=== PATIENT | male | born 1930 | race Caucasian/White ===

== ENCOUNTER 2018-07-14 16:17 | Inpatient (IN) | payer MEDICARE, OTHER ==
[2018-07-14 18:22] LABS: BASO # 0.1 K/uL (0.0-0.2); BASO % 0.5 % (0.0-2.0); EOS # 0.1 K/uL (0.0-0.7); EOS % 0.5 % (0.0-4.0); HEMOGLOBIN 11.8 g/dL (12.0-18.0); LYMPH # 0.7 K/uL (1.0-4.3); LYMPH % 6.3 % (20.0-40.0); MEAN CELL VOLUME 84.5 fl (80.0-94.0); MEAN CORPUSCULAR HEMOGLOBIN 28.8 pg (27.0-31.0); MEAN CORPUSCULAR HGB CONC 34.1 g/dL (33.0-37.0); MEAN PLATELET VOLUME 9.6 fl (7.2-11.7); MONO # 0.9 K/uL (0.0-0.8); MONO % 8.9 % (0.0-10.0); NEUT # 8.9 K/uL (1.8-7.0); NEUT % 83.8 % (50.0-75.0); NRBC % 0.1 % (0.0-0.0); PLATELET COUNT 117 K/uL (130-400); RBC 4.11 Mil/uL (4.40-5.90); RED CELL DISTRIBUTION WIDTH 16.2 % (11.5-14.5); WHITE BLOOD COUNT 10.6 K/uL (4.8-10.8)
--- NOTE | 2018-07-14 18:23 | ED PDOC ---
Lower Extremity Pain/Injury Time Seen by Provider: 07/14/18 17:12 Chief Complaint (Nursing): Lower Extremity Problem/Injury Chief Complaint (Provider): Lower Extremity Problem/Injury History Per: Patient, Family History/Exam Limitations: no limitations Onset/Duration Of Symptoms: Hrs (MOLD SWABBER) Additional Complaint(s): 87 years old male presents to ER with family for evaluation of a head injury, r ight ankle pain and right flank pain status post a mechanical fall today. Family reports he has been confused at baseline. Unclear if there was loss of consciousness. Patient is unable to answer all questions. PMD: Dr. Lassiter Past Medical History Reviewed: Historical Data, Nursing Documentation, Vital Signs Vital Signs: Last Vital Signs Temp 98.9 F 07/14/18 16:22 Pulse 92 H 07/14/18 16:22 Resp 18 07/14/18 16:22 BP 113/49 L 07/14/18 16:22 Pulse Ox 98 07/14/18 16:22 - Medical History PMH: Benign Prostatic Hyperplasia, HTN Denies: HIV, Chronic Kidney Disease - Surgical History Surgical History: Appendectomy, Cholecystectomy - Family History Family History: States: Unknown Family Hx - Social History Current smoker - smoking cessation education provided: No Alcohol: None Drugs: Denies - Home Medications Home Medications: Ambulatory Orders Medication Instructions Recorded RX: Carvedilol [Coreg] 1 tab PO BID 03/02/16 RX: Tamsulosin HCl [Flomax] 1 cap PO DAILY 03/02/16 RX: amLODIPine [Norvasc] 10 mg PO DAILY 03/02/16 RX: Fluticasone/Salmeterol 500/50 1 puff IH Q12 03/08/17 [Advair Diskus 500/50] RX: Montelukast Sodium [Singulair] 10 mg PO DAILY 03/08/17 - Allergies Allergies/Adverse Reactions: Allergies Allergy/AdvReac Type Severity Reaction Status Date / Time No Known Allergies Allergy Verified 02/18/16 12:27 Review of Systems ROS Statement: Except As Marked, All Systems Reviewed And Found Negative Musculoskeletal: Positive for: Foot Pain (Right ankle), Other (Right flank and head injury) Physical Exam - Reviewed Nursing Documentation Reviewed: Yes Vital Signs Reviewed: Yes - Physical Exam Appears: Positive for: Non-toxic, No Acute Distress Head Exam: Positive for: NORMOCEPHALIC. Negative for: ATRAUMATIC (patient has swelling and tenderness to right side parietal area) Skin: Positive for: Normal Color, Warm, Dry Eye Exam: Positive for: Normal appearance, EOMI, PERRL Neck: Positive for: Normal, Painless ROM, Supple Cardiovascular/Chest: Positive for: Regular Rate, Rhythm. Negative for: Murmur Respiratory: Positive for: Normal Breath Sounds. Negative for: Wheezing Gastrointestinal/Abdominal: Positive for: Normal Exam, Soft. Negative for: Tenderness Back: Positive for: Other (Ecchymosis to right lower flank) Extremity: Positive for: Normal ROM, Tenderness (of right ankle), Swelling (of right ankle). Negative for: Deformity (of right ankle) Neurologic/Psych: Positive for: Alert. Negative for: Oriented - Laboratory Results Result Diagrams: 07/14/18 18:05 07/14/18 18:05 - ECG O2 Sat by Pulse Oximetry: 98 (RA) Pulse Ox Interpretation: Normal Medical Decision Making Medical Decision Making: Time: 1751 Initial Impression: mechanical fall including head injury and right ankle pain. Initial Plan: --Type and screen --Abdomen/Pelvis CT --Head W/O Contrast CT --BMP --CPK --Troponin --CBC --PTT --PT --Chest x-ray --Right ankle x-ray [address] Hale, pending CT and reevaluation. Scribe Attestation: Documented by Bridgette Novoa, acting as a scribe for Bayron Schultz MD. Provider Scribe Attestation: All medical record entries made by the Scribe were at my direction and personally dictated by me. I have reviewed the chart and agree that the record accurately reflects my personal performance of the history, physical exam, medical decision making, and the department course for this patient. I have also personally directed, reviewed, and agree with the discharge instructions and disposition. Disposition - Clinical Impression Clinical Impression: Syncope - Patient ED Disposition Is Patient to be Admitted: Transfer of Care Counseled Patient/Family Regarding: Studies Performed, Diagnosis - Disposition Disposition: Transfer of Care Disposition Time: 19:00 Condition: STABLE Patient Signed Over To: Zeke Hale
[2018-07-14 18:27] LABS: BLOOD UREA NITROGEN 27 mg/dl (9-20); CALCIUM 8.2 mg/dL (8.4-10.2); GFR NON-AFRICAN AMERICAN > 60
[2018-07-14 18:29] LABS: INR 1.3; PROTHROMBIN TIME 14.8 Seconds (9.8-13.1)
[2018-07-14] MEDS ORDERED: Sodium Chloride 0.9% 50 ML IV ONE (19:12)
[2018-07-14] MEDS ORDERED: Iohexol 300 100 ML IJ ONE (19:12)
--- NOTE | 2018-07-14 19:41 | ED PDOC ---
- Laboratory Results Result Diagrams: 07/14/18 18:05 07/14/18 18:05 - ECG O2 Sat by Pulse Oximetry: 98 (RA) Pulse Ox Interpretation: Normal Medical Decision Making Medical Decision Makin Patient endorsed by Dr. Schultz, pending CT and reevaluation. [address] FINDINGS: BRAIN No acute intraparenchymal hemorrhage. No mass lesion. No CT evidence for acute territorial infarct. No midline shift or extra-axial collections. VENTRICLES: No hydrocephalus. ORBITS: The orbits are unremarkable. SINUSES AND MASTOIDS: Mucous membrane thickening ethmoid sinus is suspected. BONES: No fracture. SOFT TISSUES: Unremarkable. IMPRESSION: No acute intracranial abnormality. Chronic changes of paranasal sinus is suspected. [address] FINDINGS: ALIGNMENT There is a mild anterolisthesis at the C4-C5 and C5-C6 levels. DEGENERATIVE CHANGES There is diffuse advanced hypertrophic and degenerative change with disc space narrowing and chronic disc disease throughout the cervical spine. Spinal canal appears preserved. Advanced osteoarthritic change present within the apophyseal joints. SOFT TISSUES The prevertebral soft tissues are within normal limits. BONES No acute fracture or aggressive appearing osseous lesion. IMPRESSION: Mild anterolisthesis at the C4-C5 and C5-C6 levels. Diffuse advanced hypertrophic and degenerative change with chronic disc disease multiple levels. Clinical correlation advised. 2002 CT Chest with IV Contrast FINDINGS: CHEST: LUNGS: No pulmonary mass. The lungs appear essentially clear. There is scarring both lungs. Elevation left hemidiaphragm. PLEURAL SPACES: No pneumothorax evident. No pleural effusions. HEART: No cardiomegaly. No significant pericardial effusion. Coronary artery calcification present. LYMPH NODES: No lymphadenopathy is evident. ABDOMEN AND PELVIS: LIVER: Unremarkable. No focal lesions. GALLBLADDER AND BILE DUCTS: The gallbladder has been surgically removed. PANCREAS: Unremarkable. SPLEEN: Splenomegaly with a spleen measuring approximate 14 cm. ADRENAL GLANDS: Right adrenal gland adenoma measuring 3.3 x 2.2 cm. KIDNEYS, URETERS, AND BLADDER: Unremarkable. No hydronephrosis or nephrolithiasis. No uterteral or bladder calculi. Prostate gland is markedly enlarged and lobulated in contour. STOMACH AND BOWEL: Unremarkable appearance of the stomach and bowel. No evidence of bowel obstruction. No evidence suggesting enteritis or colitis. APPENDIX: No evidence of acute appendicitis on CT examination. PERITONEUM: No free fluid. No free air. LYMPH NODES: No lymphadenopathy is evident. VASCULATURE: No evidence of abdominal aortic aneurysm. BONES: Diffuse advanced hypertrophic and degenerative changes thoracic and lumbar spine. Minimal retrolisthesis at the L2-L3 and L3-4 levels. IMPRESSION: Scarring both lungs. Atherosclerotic changes. Splenomegaly. Right adrenal gland adenoma measuring 3.3 x 2.2 cm. Markedly enlarged and lobulated prostate gland. Advanced diffuse hypertrophic and degenerative changes thoracic and lumbar spine.. Clinical correlation advised. [address] Lassiter, who recommends appropriate observation for syncope. Scribe Attestation: Documented by Bridgette Novoa, acting as a scribe for Zeke Hale MD. Provider Scribe Attestation: All medical record entries made by the Scribe were at my direction and personally dictated by me. I have reviewed the chart and agree that the record accurately reflects my personal performance of the history, physical exam, medical decision making, and the department course for this patient. I have also personally directed, reviewed, and agree with the discharge instructions and disposition. Disposition Discussed With : Darius Pollock - Clinical Impression Clinical Impression: Syncope - POA Present On Arrival: Falls Or Trauma - Disposition Disposition: Hospitalized as Observation Patient Disposition Time: 21:00 Condition: FAIR
[2018-07-14 20:58] LABS: EOSINOPHIL 1 % (0-7); LYMPHOCYTE 8 % (20-50); MONOCYTE 7 % (0-10); NEUTROPHIL 84 % (42-75); TOTAL CELLS COUNTED 100
[2018-07-14 20:59] LABS: PLATELET ESTIMATE SLIGHTLY DECREASED (NORMAL)
[2018-07-14 21:00] LABS: ANISOCYTOSIS SLIGHT; OVALOCYTES SLIGHT
[2018-07-14 21:39] LABS: TROPONIN I 0.024 ng/mL (0.00-0.120)
[2018-07-14 21:44] LABS: CALCIUM 8.2 mg/dL (8.4-10.2)
--- NOTE | 2018-07-14 21:47 | CP.PCM.HP ---
History of Present Illness - History of Present Illness History of Present Illness: 87 years old male presents to ER with family for evaluation of multiple contusions: a head injury, right ankle pain and right flank pain status post a mechanical fall today. Family reports he has been confused at baseline. Unclear if there was loss of consciousness. Patient describes a possible syncopal episode. With dizziness and vertigo. At timers appears confuse. Present on Admission - Present on Admission Any Indicators Present on Admission: Yes Decubitus Ulcer Stage: II Past Patient History - Infectious Disease Hx of Infectious Diseases: None - Past Medical History & Family History Past Medical History?: Yes - Past Social History Alcohol: None Drugs: Denies - CARDIAC Hx Hypertension: Yes - PULMONARY Hx Respiratory Disorders: No - NEUROLOGICAL Hx Neurological Disorder: No - HEENT Hx HEENT Problems: No - RENAL Hx Chronic Kidney Disease: No - ENDOCRINE/METABOLIC Hx Endocrine Disorders: No - HEMATOLOGICAL/ONCOLOGICAL Hx Human Immunodeficiency Virus (HIV): No - INTEGUMENTARY Hx Dermatological Problems: No - MUSCULOSKELETAL/RHEUMATOLOGICAL Hx Musculoskeletal Disorders: Yes (Fall 2 wks ago) Hx Falls: Yes - GASTROINTESTINAL Hx Gastrointestinal Disorders: No - GENITOURINARY/GYNECOLOGICAL Hx Genitourinary Disorders: Yes (BPH) Hx Prostate Problems: Yes - PSYCHIATRIC Hx Psychophysiologic Disorder: No Hx Substance Use: No - SURGICAL HISTORY Hx Appendectomy: Yes Hx Cholecystectomy: Yes - ANESTHESIA Hx Anesthesia: Yes Hx Anesthesia Reactions: No Meds Allergies/Adverse Reactions: Allergies Allergy/AdvReac Type Severity Reaction Status Date / Time No Known Allergies Allergy Verified 02/18/16 12:27 Physical Exam - Constitutional Appears: Confused, Chronically Ill - Head Exam Head Exam: NORMOCEPHALIC - Eye Exam Eye Exam: Normal appearance Pupil Exam: NORMAL ACCOMODATION - ENT Exam ENT Exam: Mucous Membranes Dry - Neck Exam Neck exam: Positive for: Full Rom - Respiratory Exam Respiratory Exam: Clear to Auscultation Bilateral - Cardiovascular Exam Cardiovascular Exam: REGULAR RHYTHM, +S1, +S2 - GI/Abdominal Exam GI & Abdominal Exam: Normal Bowel Sounds - Extremities Exam Additional comments: severe onychomycosis - Neurological Exam Neurological exam: Altered - Psychiatric Exam Psychiatric exam: Flat Affect - Skin Skin Exam: Abrasion Additional comments: large ecchymosis in the rt flank with an ulceration stage II about 2 cm, stage II decubitus ulcer in the sacral area and stage I in the back Results - Vital Signs Recent Vital Signs: Last Vital Signs Temp 98.9 F 07/14/18 16:22 Pulse 88 07/14/18 20:57 Resp 18 07/14/18 20:57 BP 103/51 L 07/14/18 20:57 Pulse Ox 98 07/14/18 21:02 - Labs Result Diagrams: 07/14/18 18:05 07/14/18 18:05 Labs: Laboratory Results - last 24 hr 07/14/18 07/14/18 07/14/18 18:05 18:05 18:05 WBC 10.6 RBC 4.11 L Hgb 11.8 L Hct 34.8 L MCV 84.5 MCH 28.8 MCHC 34.1 RDW 16.2 H Plt Count 117 L MPV 9.6 Neut % (Auto) 83.8 H Lymph % (Auto) 6.3 L [place] % (Auto) 8.9 Eos % (Auto) 0.5 Baso % (Auto) 0.5 Neut # (Auto) 8.9 H Lymph # (Auto) 0.7 L [place] # (Auto) 0.9 H Eos # (Auto) 0.1 Baso # (Auto) 0.1 Neutrophils % (Manual) 84 H Lymphocytes % (Manual) 8 L Monocytes % (Manual) 7 Eosinophils % (Manual) 1 Platelet Estimate Slightly decreased L Anisocytosis (manual) Slight Ovalocytes Slight PT INR APTT Sodium 136 Potassium 4.2 Chloride 110 H Carbon Dioxide 20 L Anion Gap 10 BUN 27 H Creatinine 0.8 Est GFR ( Amer) > 60 Est GFR (Non-Af Amer) > 60 Random Glucose 140 H Calcium 8.2 L Magnesium Total Creatine Kinase 29 L Troponin I 0.0220 Blood Type A POSITIVE Antibody Screen Negative BBK History Checked Patient has bt 07/14/18 07/14/18 18:05 21:11 WBC RBC Hgb Hct MCV MCH MCHC RDW Plt Count MPV Neut % (Auto) Lymph % (Auto) [place] % (Auto) Eos % (Auto) Baso % (Auto) Neut # (Auto) Lymph # (Auto) [place] # (Auto) Eos # (Auto) Baso # (Auto) Neutrophils % (Manual) Lymphocytes % (Manual) Monocytes % (Manual) Eosinophils % (Manual) Platelet Estimate Anisocytosis (manual) Ovalocytes PT 14.8 H INR 1.3 APTT 39.0 H Sodium Potassium Chloride Carbon Dioxide Anion Gap BUN Creatinine Est GFR ( Amer) Est GFR (Non-Af Amer) Random Glucose Calcium 8.2 L Magnesium 2.2 Total Creatine Kinase Troponin I 0.0240 Blood Type Antibody Screen BBK History Checked Assessment & Plan (1) Syncope Status: Acute (2) Dehydration Status: Acute (3) Ecchymosis Status: Acute (4) Decubitus skin ulcer Status: Acute (5) Delirium Status: Acute
[2018-07-14] MEDS: Sodium Chloride 0.9% 1,000 ML IV SCH (22:04)
[2018-07-14 22:31] LABS: ALB/GLOB RATIO 0.9 (1.0-2.1); ALBUMIN 2.8 g/dL (3.5-5.0); BILIRUBIN,DIRECT 0.1 mg/ml (0.0-0.4)
[2018-07-14 23:56] LABS: SQUAMOUS EPITHIAL 1 /hpf (0-5); URINE BILIRUBIN NEGATIVE (NEGATIVE); URINE BLOOD NEGATIVE (NEGATIVE); URINE CLARITY CLEAR (Clear); URINE COLOR YELLOW (YELLOW); URINE GLUCOSE (UA) NEG (Normal); URINE LEUKOCYTE ESTERASE NEG Leu/uL (Negative); URINE PROTEIN NEGATIVE (NEGATIVE)
[2018-07-15 03:36] VITALS: BMI 23.6
[2018-07-15] MEDS ORDERED: Influenza Vaccine (5 YR UP)/PF 60 MCG/0.5 ML SYR IM ONE (08:00)
[2018-07-15] MEDS: Fluticasone-Salmeterol 500-50mcg Diskus IH SCH (08:49)
[2018-07-15] MEDS: Enoxaparin 40 mg Syringe SC SCH (08:50)
[2018-07-15] MEDS ORDERED: Pneumococcal 23-Valent Vaccine IM ONE (09:00)
[2018-07-15 09:15] LABS: SQUAMOUS EPITHIAL < 1 /hpf (0-5); URINE BILIRUBIN NEGATIVE (NEGATIVE); URINE BLOOD MODERATE (NEGATIVE); URINE CLARITY SLIGHTY-CLOUDY (Clear); URINE COLOR YELLOW (YELLOW); URINE GLUCOSE (UA) NEG (Normal); URINE LEUKOCYTE ESTERASE TRACE Leu/uL (Negative); URINE PROTEIN NEGATIVE (NEGATIVE)
--- NOTE | 2018-07-15 09:25 | CT ---
Date of service: 07/14/2018 PROCEDURE: CT HEAD WITHOUT CONTRAST. HISTORY: head injury COMPARISON: None available. TECHNIQUE: Axial computed tomography images were obtained through the head/brain without intravenous contrast. Radiation dose: Total exam DLP = 831.14 mGy-cm. This CT exam was performed using one or more of the following dose reduction techniques: Automated exposure control, adjustment of the mA and/or kV according to patient size, and/or use of iterative reconstruction technique. FINDINGS: HEMORRHAGE: No intracranial hemorrhage. BRAIN: No mass effect or edema. Mild diffuse age-appropriate cerebral atrophy. Moderate periventricular and patchy and confluent deep/subcortical white matter lucency consistent with microvascular white matter ischemic change. No evidence of acute infarct. VENTRICLES: Unremarkable. No hydrocephalus. CALVARIUM: Unremarkable. PARANASAL SINUSES: Minimal chronic left frontal and bilateral maxillary sinusitis. MASTOID AIR CELLS: Unremarkable as visualized. No inflammatory changes. OTHER FINDINGS: None. IMPRESSION: No intracranial mass, hemorrhage or evidence of acute infarct. Chronic microvascular ischemic change. Minimal chronic paranasal sinusitis. The preliminary findings for this examination were reported by [facility] at 7:34 p.m. on 07/14/2018. There is concurrence of this report with the preliminary findings.
--- NOTE | 2018-07-15 09:37 | CT ---
Date of service: 07/14/2018 PROCEDURE: CT Cervical Spine without contrast HISTORY: head injury COMPARISON: None available. TECHNIQUE: Axial computed tomography images were obtained of the cervical spine without the use of intravenous contrast. Coronal and sagittal reformatted images were created and reviewed. Radiation dose: Total exam DLP = 348.81 mGy-cm. This CT exam was performed using one or more of the following dose reduction techniques: Automated exposure control, adjustment of the mA and/or kV according to patient size, and/or use of iterative reconstruction technique. FINDINGS: VERTEBRAE: The vertebral bodies are maintained in height. There is grade 1 retrolisthesis at C3-4. There is grade 1 anterolisthesis at C5-6. This is felt to be degenerative in origin. Normal alignment is maintained elsewhere. The atlantoaxial articulation and odontoid process are intact. Incidentally noted is an irregularly shaped sclerotic focus with sharp zone of transition most likely representing a benign bone island or enostosis. DISCS/SPINAL CANAL/NEURAL FORAMINA: There is narrowing of the C3-4 through 7-1 intervertebral disc spaces consistent with multilevel degenerative disc disease. This is most pronounced at C3-4. There is bilateral neural foraminal stenosis at C3-4, left greater than right. There is mild central spinal stenosis noted at C3-4. There is no significant central spinal stenosis seen elsewhere throughout the cervical spine. There is mild disc bulge at C3-4. There is no focal herniation identified. PARASPINAL SOFT TISSUES: Unremarkable. OTHER FINDINGS: There is linear scar as well as mild pleural thickening in the right lung apex, likely postinflammatory but cannot rule out malignancy. Follow-up advised. IMPRESSION: No evidence of fracture or dislocation. There are mild this the sees as noted, degenerative in origin. Multilevel degenerative disc disease. Bilateral neural foraminal stenosis at C3-4 with central spinal stenosis at C3-4 and disc bulge. Linear scar and pleural thickening in right apex, likely postinflammatory. See above. The preliminary findings for this examination were reported by [facility] at 7:38 p.m. on 07/14/2018. There is concurrence of this report with the preliminary findings.
[2018-07-15] MEDS: Sodium Chloride 0.9% 1,000 ML IV SCH (10:19)
--- NOTE | 2018-07-15 11:14 | CARD ---
APPROVED REPORT Date of service: 07/14/2018 EKG Measurement Heart [id number] <Conclusion> Sinus rhythm with 1st degree AV block Left axis deviation Moderate voltage criteria for LVH, may be normal variant Abnormal ECG
--- NOTE | 2018-07-15 11:31 | US ---
Date of service: 07/14/2018 PROCEDURE: Duplex ultrasound of the carotid and vertebral arteries. HISTORY: syncope COMPARISON: None available. TECHNIQUE: Grayscale and duplex Doppler evaluation of the cervical carotid and vertebral arteries were performed. The common carotid, carotid bifurcations and cervical ICA and proximal ECA were evaluated. The vertebral arteries were evaluated for gross patency and direction. FINDINGS: RIGHT CAROTID ARTERIES: Common Carotid Artery: Maximal flow velocity of 64.7 cm/s. Carotid Bifurcation: Intimal thickening is present Internal Carotid Artery:Heterogeneous plaque formation. Maximal flow velocity of 63.0 cm/s. External Carotid Artery (proximal branches): Maximal flow velocity of 127.6 cm/s. ICA/CCA Ratio: 1.0 LEFT CAROTID ARTERIES: Common Carotid Artery: Maximal flow velocity of 72.4 cm/s. Carotid Bifurcation: Intimal thickening is present Internal Carotid Artery:Heterogeneous plaque formation. Maximal flow velocity of 64.7 cm/s. External Carotid Artery (proximal branches): Maximal flow velocity of 90.5 cm/s. ICA/CCA Ratio: 0.9 VERTEBRAL ARTERIES: Right Vertebral Artery: Patent. Antegrade flow. Left Vertebral Artery: Patent. Antegrade flow. OTHER FINDINGS: Atherosclerotic calcification present. IMPRESSION: Right ICA degree of stenosis: Less than 50% Left ICA degree of stenosis: Less than 50% Reference Internal Carotid Artery (ICA) Peak Systolic Velocity (PSV) for above: 1. Less than 50% stenosis less than 125 cm/s peak systolic velocity 2. 50-69% stenosis 125-230cm/s peak systolic velocity 3. Greater than 70% but less than near occlusion greater than 230 cm/s peak systolic velocity
--- NOTE | 2018-07-15 11:48 | RAD ---
Date of service: 07/14/2018 HISTORY: fall COMPARISON: 03/03/2016 FINDINGS: LUNGS: Patchy multifocal infiltrates. PLEURA: No significant pleural effusion identified, no pneumothorax apparent. CARDIOVASCULAR: Atherosclerotic calcifications identified primarily aortic arch. OSSEOUS STRUCTURES: Posterior lateral left 7th rib fracture. VISUALIZED UPPER ABDOMEN: Normal. OTHER FINDINGS: None. IMPRESSION: Posterior-lateral left 7th rib fracture. No visible pneumothorax. Patchy multifocal infiltrates bilaterally.
--- NOTE | 2018-07-15 11:49 | RAD ---
Date of service: 07/14/2018 PROCEDURE: Right Ankle Radiographs. HISTORY: righth ankle pain injury COMPARISON: None available. FINDINGS: BONES: Normal. No fracture. JOINTS: Normal. No osteoarthritis. Ankle mortise maintained. Talar dome intact SOFT TISSUES: Normal. OTHER FINDINGS: None. IMPRESSION: No visible fracture/pathologic process.
--- NOTE | 2018-07-15 12:36 | CP.PCM.PN ---
Subjective - Date & Time of Evaluation Date of Evaluation: 07/15/18 Time of Evaluation: 12:37 - Subjective Subjective: Still confuse BUN elevated, Multifocal infiltrate in CXR, positive leukocytes in urine Patient with mental status changes with uti and pneumonia CURB #. Will change to regular admission and start antibx rx. Objective - Vital Signs/Intake and Output Vital Signs (last 24 hours): Temp Pulse Resp BP Pulse Ox 98.5 F 89 24 135/59 L 95 07/15/18 12:01 07/15/18 12:01 07/15/18 12:01 07/15/18 12:01 07/15/18 12:01 Intake and Output: 07/15/18 07/15/18 11:59 23:59 Intake Total 680 Output Total 400 Balance 280 - Medications Medications: Current Medications Amlodipine Besylate (Norvasc) 10 mg PO DAILY [facility] Last Admin: 07/15/18 08:51 Dose: 10 mg Carvedilol (Coreg) 3.125 mg PO BID [facility] Last Admin: 07/15/18 08:50 Dose: 3.125 mg Enoxaparin Sodium (Lovenox) 40 mg SC DAILY [facility]; Protocol Last Admin: 07/15/18 08:50 Dose: 40 mg Sodium Chloride (Sodium Chloride 0.9%) 1,000 mls @ 85 mls/hr IV .[id number] [facility] Stop: 07/15/18 21:56 Last Admin: 07/15/18 10:19 Dose: 85 mls/hr Montelukast Sodium (Singulair) 10 mg PO DAILY [facility] Last Admin: 07/15/18 08:51 Dose: 10 mg Fluticasone/Salmeterol (Advair Diskus 500/50) 1 puff IH Q12 [facility] Last Admin: 07/15/18 08:49 Dose: 1 puff Tamsulosin HCl (Flomax) 0.4 mg PO DAILY [facility] Last Admin: 07/15/18 08:51 Dose: 0.4 mg - Labs Labs: 07/14/18 18:05 07/14/18 18:05 PT 14.8 Seconds (9.8-13.1) H 07/14/18 18:05 INR 1.3 07/14/18 18:05 APTT 39.0 Seconds (25.6-37.1) H 07/14/18 18:05 - Constitutional Appears: Confused, Chronically Ill - Head Exam Head Exam: NORMOCEPHALIC - Eye Exam Pupil Exam: NORMAL ACCOMODATION - ENT Exam ENT Exam: Mucous Membranes Dry - Neck Exam Neck Exam: Full ROM - Respiratory Exam Respiratory Exam: Decreased Breath Sounds - Cardiovascular Exam Cardiovascular Exam: REGULAR RHYTHM, +S1, +S2 - GI/Abdominal Exam GI & Abdominal Exam: Normal Bowel Sounds - Extremities Exam Extremities Exam: Normal Inspection - Neurological Exam Neurological Exam: Altered - Psychiatric Exam Psychiatric exam: Flat Affect - Skin Skin Exam: Pallor Assessment and Plan (1) Syncope Status: Acute (2) Dehydration Status: Acute (3) Ecchymosis Status: Acute (4) Decubitus skin ulcer Status: Acute (5) Delirium Status: Acute (6) UTI (urinary tract infection) Status: Acute (7) Pneumonia Status: Acute
[2018-07-15 13:04] LABS: FOLATE 16.3 ng/mL
--- NOTE | 2018-07-15 13:45 | CT ---
Date of service: 07/14/2018 PROCEDURE: CT Chest, Abdomen and Pelvis with intravenous contrast HISTORY: fall abdominal injury COMPARISON: None available. TECHNIQUE: IV dose administered: 90 cc Omnipaque 300. Radiation dose: Total exam DLP = 1135.72 mGy-cm. This CT exam was performed using one or more of the following dose reduction techniques: Automated exposure control, adjustment of the mA and/or kV according to patient size, and/or use of iterative reconstruction technique. FINDINGS: CT CHEST WITH CONTRAST: LUNGS: Increased interstitial markings including thickening of interlobular septa consistent with pulmonary edema. MEDIASTINUM: Unremarkable. Normal caliber aorta and pulmonary arterial trunk. No aortic dissection. Normal size heart. LYMPH NODES: Unremarkable. PLEURA: Pleural calcifications likely the sequela of prior asbestos exposure. No pneumothorax. No pleural fluid. BONES: Nondisplaced fractures through the posterior lateral aspect of the right 6th and 7th ribs. No adjacent, underlying pleural or pulmonary abnormality. OTHER FINDINGS: None. CT ABDOMEN AND PELVIS: LIVER: Unremarkable. No gross lesion or ductal dilatation. GALLBLADDER AND BILE DUCTS: Status post cholecystectomy. No abnormality is seen in the gallbladder fossa. PANCREAS: Unremarkable. No gross lesion or ductal dilatation. SPLEEN: Unremarkable. ADRENALS: Enlarged right adrenal gland unchanged compared to the prior CT 03/03/2016. Well-circumscribed mass measuring 2.3 x 3.3 cm. Left adrenal gland: No mass. KIDNEYS AND URETERS: Unremarkable. No hydronephrosis. No solid mass. VASCULATURE: Atherosclerotic calcification and mural plaque present. Findings are seen throughout the aorta No aortic aneurysm. BOWEL: Unremarkable. No obstruction. No gross mural thickening. APPENDIX: Normal appendix. PERITONEUM: Unremarkable. No free fluid. No free air. LYMPH NODES: Unremarkable. No enlarged lymph nodes. BLADDER: Unremarkable. REPRODUCTIVE: Markedly enlarged prostate measuring 6.3 x 7.2 cm. Similar findings identified on the prior study. BONES: No acute fracture. OTHER FINDINGS: Large hematoma, soft tissue injury extending from the left flank inferiorly to the level of the abductors muscles. Increased attenuation of several foci higher than expected for hemorrhage. Other considerations include osseous origin. Whether this is a destructive process or soft tissue mass containing bony elements or atypical avulsion from the right iliac wing is difficult to determine. Elective follow-up recommended Postoperative findings right inguinal region improved compared to the prior study. IMPRESSION: 1. Posterolateral right 7th and 8th rib fractures. No underlying pleural or parenchymal abnormality. 2. Large soft tissue injury, hematoma primarily affecting the right flank and abduct ir musculature. Elective follow-up recommended for assessment of foci of calcifications within the soft tissue mass. 3. Stable enlargement of the right adrenal gland. Per institutional protocol, study has been placed in the PA review folder.
[2018-07-15] MEDS: Azithromycin 500 MG in Sodium Chloride 0.9% 250 ML IVPB SCH (15:57)
--- NOTE | 2018-07-15 23:53 | CARD ---
APPROVED REPORT Date of service: 07/15/2018 EXAM: Two-dimensional and M-mode echocardiogram with Doppler and color Doppler. Other Information Quality : PoorRhythm : NSR Technically limited study due to No Echo Window Mitral Valve E/A ratio0.0 TDI E/Lateral E'0.0E/Medial E'0.0 LEFT VENTRICLE The left ventricle is normal size. There is normal left ventricular wall thickness. The left ventricular function is normal. LVEF is 55-60%. There is normal LV segmental wall motion. Not completely assessed. RIGHT VENTRICLE Not well visualized. Not well visualized. ATRIA The left atrium size is normal. Not well visualized. AORTIC VALVE Not well visualized. No aortic regurgitation is present. Not well visualized. MITRAL VALVE Not well visualized. There is no mitral valve stenosis. There is no mitral valve regurgitation noted. TRICUSPID VALVE Not well visualized. Not well visualized. PULMONIC VALVE Not well visualized. Not well visualized. GREAT VESSELS Not well visualized. Not well visualized. PERICARDIAL EFFUSION The pericardium appears normal. <Conclusion> Technically difficult study with limited windows. Normal LV systolic function with EF 55-60% Diastolic function assessment was inconclusive. Likely normal mitral and aortic valves with no significant doppler flow abnormality.
[2018-07-16] MEDS: Sodium Chloride 0.9% 1,000 ML IV SCH (02:17)
[2018-07-16 05:42] LABS: BASO % 0.8 % (0.0-2.0); EOS % 0.6 % (0.0-4.0); HEMOGLOBIN 7.9 g/dL (12.0-18.0); LYMPH # 0.6 K/uL (1.0-4.3); LYMPH % 11.7 % (20.0-40.0); MEAN CELL VOLUME 84.7 fl (80.0-94.0); MEAN CORPUSCULAR HGB CONC 34.3 g/dL (33.0-37.0); MEAN PLATELET VOLUME 9.8 fl (7.2-11.7); MONO # 0.6 K/uL (0.0-0.8); MONO % 11.5 % (0.0-10.0); NEUT # 3.8 K/uL (1.8-7.0); NEUT % 75.4 % (50.0-75.0); NRBC % 0.1 % (0.0-0.0); RBC 2.71 Mil/uL (4.40-5.90); RED CELL DISTRIBUTION WIDTH 16.2 % (11.5-14.5)
[2018-07-16 05:54] LABS: BLOOD UREA NITROGEN 23 mg/dl (9-20); CALCIUM 7.7 mg/dL (8.4-10.2); GFR NON-AFRICAN AMERICAN > 60
[2018-07-16] MEDS: Enoxaparin 40 mg Syringe SC SCH ×2 (08:24→08:38)
[2018-07-16] MEDS: Fluticasone-Salmeterol 500-50mcg Diskus IH SCH ×2 (08:26→22:43)
[2018-07-16 08:49] LABS: HEMOGLOBIN 7.7 g/dL (12.0-18.0); MEAN CORPUSCULAR HGB CONC 33.8 g/dL (33.0-37.0); RBC 2.66 Mil/uL (4.40-5.90); RED CELL DISTRIBUTION WIDTH 15.9 % (11.5-14.5); WHITE BLOOD COUNT 5.2 K/uL (4.8-10.8)
--- NOTE | 2018-07-16 08:56 | CP.PCM.CON ---
History of Present Illness - History of Present Illness History of Present Illness: This 87 year old male presented to the emergency room for evaluation after a fall with apparent multiple trauma. He is cooperative with the exam, but does not answer any questions so the history has been obtained from the medical recor d. There has been report of rib fractures on the right and a question of pneumonia based on the chest x-ray done on presentation. There has been a follow up CT of the chest which does not shoa any parenchymal consolidation, bur there is longstanding other abnormalities noted. A large left diaphragmatic hernia which has been seen on previous studies dating back 10 years, pleural calcifications on the right, also present for many years. Pleural thickening at the right apex as well as the right base is also present on previous exams. He is not short of breath when seen, not coughing, no signs of chest pain ellicited on exam. There has been no leukocytosis or fever documented. His past smoking h istory is questionable, but there is one prior reference to 'former smoker'. Past Patient History - Infectious Disease Hx of Infectious Diseases: None - Past Medical History & Family History Past Medical History?: Yes - Past Social History Smoking Status: Former Smoker Alcohol: None Drugs: Denies - CARDIAC Hx Hypertension: Yes - PULMONARY Hx Respiratory Disorders: No - NEUROLOGICAL Hx Neurological Disorder: Yes Other/Comment: bilateral subdural hematoma - HEENT Hx Sinusitis: Yes - RENAL Hx Chronic Kidney Disease: No - ENDOCRINE/METABOLIC Hx Endocrine Disorders: No - HEMATOLOGICAL/ONCOLOGICAL Hx Human Immunodeficiency Virus (HIV): No Other/Comment: thrombocytopenia - INTEGUMENTARY Hx Dermatological Problems: No - MUSCULOSKELETAL/RHEUMATOLOGICAL Hx Musculoskeletal Disorders: Yes (Fall 2 wks ago) Hx Falls: Yes - GASTROINTESTINAL Hx Gastrointestinal Disorders: No - GENITOURINARY/GYNECOLOGICAL Hx Prostate Problems: Yes (BPH) - PSYCHIATRIC Hx Psychophysiologic Disorder: No Hx Substance Use: No - SURGICAL HISTORY Hx Appendectomy: Yes Hx Cholecystectomy: Yes Hx Herniorrhaphy: Yes - ANESTHESIA Hx Anesthesia: Yes Hx Anesthesia Reactions: No Meds Allergies/Adverse Reactions: Allergies Allergy/AdvReac Type Severity Reaction Status Date / Time No Known Allergies Allergy Verified 02/18/16 12:27 - Medications Medications: Current Medications Amlodipine Besylate (Norvasc) 10 mg PO DAILY [facility] Last Admin: 07/16/18 08:22 Dose: 10 mg Carvedilol (Coreg) 3.125 mg PO BID [facility] Last Admin: 07/15/18 16:06 Dose: Not Given Enoxaparin Sodium (Lovenox) 40 mg SC DAILY [facility]; Protocol Last Admin: 07/16/18 08:38 Dose: Not Given Ceftriaxone Sodium 1 gm/ (Sodium Chloride) 100 mls @ 100 mls/hr IVPB DAILY [facility]; Protocol Last Admin: 07/16/18 08:24 Dose: 100 mls/hr Azithromycin 500 mg/ Sodium (Chloride) 250 mls @ 250 mls/hr IVPB DAILY [facility]; Protocol Last Admin: 07/15/18 15:57 Dose: 250 mls/hr Montelukast Sodium (Singulair) 10 mg PO DAILY [facility] Last Admin: 07/16/18 08:25 Dose: 10 mg Fluticasone/Salmeterol (Advair Diskus 500/50) 1 puff IH Q12 [facility] Last Admin: 07/16/18 08:26 Dose: 1 puff Tamsulosin HCl (Flomax) 0.4 mg PO DAILY [facility] Last Admin: 07/15/18 08:51 Dose: 0.4 mg Physical Exam - Additional Findings Additional findings: Lying in bed, not in acute distress. Follows simple commands, does not respond verbally. Large area of ecchymosis over the right flank, extends to the groin. Pharynx is pink, MM are dry. Poor dental hygeine. Neck is supple and trachea midline. No dullness on percussion of the anterior chest wall. No subcut emphysema. Breath sounds are present bilaterally, diminished, without audible wheezing. Dry rales are heard in the posterior regions of both lungs. No bronchial breath sounds, no audible rub. Heart sounds are distant, rhythm seems regular. Abdomen is soft, hypo BS, large ecchymosis mentioned above. Chronically hyperpigmented LE's bilaterally from knees to ankles, warm to touch. Nailbeds appear dusky, but no overt cyanosis. Results - Vital Signs Recent Vital Signs: Last Vital Signs Temp 98.3 F 07/16/18 08:04 Pulse 83 07/16/18 08:22 Resp 16 07/16/18 08:04 BP 116/54 L 07/16/18 08:22 Pulse Ox 98 07/16/18 08:04 - Labs Result Diagrams: 07/16/18 04:55 07/16/18 04:55 Labs: Laboratory Results - last 24 hr 07/14/18 07/15/18 07/16/18 22:08 08:00 04:55 WBC 5.0 D RBC 2.71 L Hgb 7.9 L D Hct 22.9 L MCV 84.7 MCH 29.0 MCHC 34.3 RDW 16.2 H Plt Count 62 L D MPV 9.8 Neut % (Auto) 75.4 H Lymph % (Auto) 11.7 L [place] % (Auto) 11.5 H Eos % (Auto) 0.6 Baso % (Auto) 0.8 Neut # (Auto) 3.8 Lymph # (Auto) 0.6 L [place] # (Auto) 0.6 Eos # (Auto) 0.0 Baso # (Auto) 0.0 Sodium Potassium Chloride Carbon Dioxide Anion Gap BUN Creatinine Est GFR ( Amer) Est GFR (Non-Af Amer) Random Glucose Calcium Folate 16.3 Urine Color Yellow Urine Clarity Slighty-cloudy Urine pH 5.0 Ur Specific [place] 1.010 Urine Protein Negative Urine Glucose (UA) Neg Urine Ketones Negative Urine Blood Moderate Urine Nitrate Negative Urine Bilirubin Negative Urine Urobilinogen 4.0 Ur Leukocyte Esterase Trace Urine RBC (Auto) 11 H Urine Microscopic WBC 5 Ur Squamous Epith Cells < 1 07/16/18 04:55 WBC RBC Hgb Hct MCV MCH MCHC RDW Plt Count MPV Neut % (Auto) Lymph % (Auto) [place] % (Auto) Eos % (Auto) Baso % (Auto) Neut # (Auto) Lymph # (Auto) [place] # (Auto) Eos # (Auto) Baso # (Auto) Sodium 139 Potassium 4.0 Chloride 112 H Carbon Dioxide 21 L Anion Gap 10 BUN 23 H Creatinine 0.9 Est GFR ( Amer) > 60 Est GFR (Non-Af Amer) > 60 Random Glucose 120 H Calcium 7.7 L Folate Urine Color Urine Clarity Urine pH Ur Specific [place] Urine Protein Urine Glucose (UA) Urine Ketones Urine Blood Urine Nitrate Urine Bilirubin Urine Urobilinogen Ur Leukocyte Esterase Urine RBC (Auto) Urine Microscopic WBC Ur Squamous Epith Cells Assessment & Plan (1) Anemia Status: Acute Priority: High (2) Ecchymosis on examination Status: Acute Priority: High (3) Altered mental status Status: Acute Priority: High (4) Thrombocytopenia Status: Acute Priority: High (5) Ribs, multiple fractures Status: Acute Priority: High Comment: right 7 & 8 (6) 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 - Assessment and Plan (Free Text) Plan: No evidence of pneumonia when CT chest is reviewed. Initial CXR reported patchy densities not seen on CT may have been influenced by presence of pleural disease. - Date & Time Date: 07/16/18 Time: 08:48
--- NOTE | 2018-07-16 08:57 | PQF ---
PROVIDER RESPONSE TEXT: Multiple contusions the sites of these contusions. 1. Posterolateral right 7th and 8th rib fractures. No underlying pleural or parenchymal abnormality. 2. Large soft tissue injury, hematoma primarily af fecting the right flank and abduct ir musculature. Elective follow-up recommended for assessment of f oci of calcifications within the soft tissue mass. 3. Stable enlargement of the right adrenal gland. REVIEWER QUERY TEXT: Documentation Clarification Your help is requested in clarifying the following clinical documentation, if you can please further specify in the medical record and discharge summary. The patient's Clinical Indicators include: CT CHEST/ ABDOMEN: 1. Posterolateral right 7th and 8th rib fractures. No underlying pleural or paren chymal abnormality. 2. Large soft tissue injury, hematoma primarily affecting the right flank and abduct ir musculature. Elective follow-up recommended for assessment of foci of calcifications within the soft tissue mass . 3. Stable enlargement of the right adrenal gland. Query created by: Mary De La Cruz on 07/16/2018 8:31 AM Electronically signed by: Darius Pollock MD 07/16/2018 8:54 AM
[2018-07-16] MEDS: Azithromycin 500 MG in Sodium Chloride 0.9% 250 ML IVPB SCH (09:25)
[2018-07-16] MEDS ORDERED: Phytonadione 1 mg/0.5 ml Inj (Neonatal) IM ONE (09:50)
--- NOTE | 2018-07-16 10:08 | CP.PCM.CON ---
History of Present Illness - History of Present Illness History of Present Illness: This is a 87 yrs old male who was admitted because of a fall sustaining a large hematoma extending from the back in the flank area around the front of the chest and to the groin. Xray showes fracture of the right 7th and 8th ribs. The hematoma is large and HGB has dropped from 11.8 gms on admission to 7.1 gms today. There is no other site of bleeding. His platelet count is also a little, low 72k. PT and PTT are slightly elevated. Pt is not on aspirin or plavix,. he had a cholecystectomy a ew years ago and was seen by Dr Wood for thrombocytopenia. The functioning platelet count was however normal and pt went ahead with the surgery. Pt is alert awake but does not answer questions. History was obtained from the chart and pt's son who confirms that pt was not on a blood thinner,and has not had a bleeding diathesis unless it was associated with trauma. Past Patient History - Infectious Disease Hx of Infectious Diseases: None - Past Medical History & Family History Past Medical History?: Yes - Past Social History Smoking Status: Former Smoker Alcohol: None Drugs: Denies - CARDIAC Hx Hypertension: Yes - PULMONARY Hx Respiratory Disorders: No - NEUROLOGICAL Hx Neurological Disorder: Yes Other/Comment: bilateral subdural hematoma - HEENT Hx Sinusitis: Yes - RENAL Hx Chronic Kidney Disease: No - ENDOCRINE/METABOLIC Hx Endocrine Disorders: No - HEMATOLOGICAL/ONCOLOGICAL Hx Human Immunodeficiency Virus (HIV): No Other/Comment: thrombocytopenia - INTEGUMENTARY Hx Dermatological Problems: No - MUSCULOSKELETAL/RHEUMATOLOGICAL Hx Musculoskeletal Disorders: Yes (Fall 2 wks ago) Hx Falls: Yes - GASTROINTESTINAL Hx Gastrointestinal Disorders: No - GENITOURINARY/GYNECOLOGICAL Hx Prostate Problems: Yes (BPH) - PSYCHIATRIC Hx Psychophysiologic Disorder: No Hx Substance Use: No - SURGICAL HISTORY Hx Appendectomy: Yes Hx Cholecystectomy: Yes Hx Herniorrhaphy: Yes - ANESTHESIA Hx Anesthesia: Yes Hx Anesthesia Reactions: No Meds Allergies/Adverse Reactions: Allergies Allergy/AdvReac Type Severity Reaction Status Date / Time No Known Allergies Allergy Verified 02/18/16 12:27 - Medications Medications: Current Medications Amlodipine Besylate (Norvasc) 10 mg PO DAILY [facility] Last Admin: 07/16/18 08:22 Dose: 10 mg Carvedilol (Coreg) 3.125 mg PO BID [facility] Last Admin: 07/15/18 16:06 Dose: Not Given Enoxaparin Sodium (Lovenox) 40 mg SC DAILY [facility]; Protocol Last Admin: 07/16/18 08:38 Dose: Not Given Ceftriaxone Sodium 1 gm/ (Sodium Chloride) 100 mls @ 100 mls/hr IVPB DAILY [facility]; Protocol Last Admin: 07/16/18 08:24 Dose: 100 mls/hr Azithromycin 500 mg/ Sodium (Chloride) 250 mls @ 250 mls/hr IVPB DAILY [facility]; Protocol Last Admin: 07/16/18 09:25 Dose: 250 mls/hr Montelukast Sodium (Singulair) 10 mg PO DAILY [facility] Last Admin: 07/16/18 08:25 Dose: 10 mg Phytonadione (Vitamin K) 1 mg IM ONCE ONE Stop: 07/16/18 09:51 Fluticasone/Salmeterol (Advair Diskus 500/50) 1 puff IH Q12 [facility] Last Admin: 07/16/18 08:26 Dose: 1 puff Tamsulosin HCl (Flomax) 0.4 mg PO DAILY [facility] Last Admin: 07/15/18 08:51 Dose: 0.4 mg Physical Exam - Additional Findings Additional findings: Physical exam; Alert, orientetion cannot be ascertained. Nech; supple, no adenopathy Chest; clear, no murmur Heart; RSR, no murmur Abd; soft, no mass, no h/s megsly The skin from the flank area is markedly ecchymotic extending to the front of the abdomen and groin. Results - Vital Signs Recent Vital Signs: Last Vital Signs Temp 98.3 F 07/16/18 08:04 Pulse 89 07/16/18 09:00 Resp 18 07/16/18 09:00 BP 111/41 L 07/16/18 09:00 Pulse Ox 96 07/16/18 09:00 - Labs Result Diagrams: 07/16/18 08:42 07/16/18 04:55 Labs: Laboratory Results - last 24 hr 07/14/18 07/14/18 07/16/18 18:05 22:08 04:55 WBC 5.0 D RBC 2.71 L Hgb 7.9 L D Hct 22.9 L MCV 84.7 MCH 29.0 MCHC 34.3 RDW 16.2 H Plt Count 62 L D MPV 9.8 Neut % (Auto) 75.4 H Lymph % (Auto) 11.7 L [place] % (Auto) 11.5 H Eos % (Auto) 0.6 Baso % (Auto) 0.8 Neut # (Auto) 3.8 Lymph # (Auto) 0.6 L [place] # (Auto) 0.6 Eos # (Auto) 0.0 Baso # (Auto) 0.0 Sodium Potassium Chloride Carbon Dioxide Anion Gap BUN Creatinine Est GFR ( Amer) Est GFR (Non-Af Amer) Random Glucose Calcium Folate 16.3 Blood Type A POSITIVE Antibody Screen Negative Crossmatch See Detail BBK History Checked Patient has bt 07/16/18 07/16/18 04:55 08:42 WBC 5.2 RBC 2.66 L Hgb 7.7 L Hct 22.8 L MCV 86.0 MCH 29.0 MCHC 33.8 RDW 15.9 H Plt Count 72 L MPV Neut % (Auto) Lymph % (Auto) [place] % (Auto) Eos % (Auto) Baso % (Auto) Neut # (Auto) Lymph # (Auto) [place] # (Auto) Eos # (Auto) Baso # (Auto) Sodium 139 Potassium 4.0 Chloride 112 H Carbon Dioxide 21 L Anion Gap 10 BUN 23 H Creatinine 0.9 Est GFR ( Amer) > 60 Est GFR (Non-Af Amer) > 60 Random Glucose 120 H Calcium 7.7 L Folate Blood Type Antibody Screen Crossmatch BBK History Checked Assessment & Plan - Assessment and Plan (Free Text) Assessment: Impression; Large hematoma to the right lo side of the chest followeing 7th and 8th rib fractures. Plan: Plan; will transfuse him 2 units of packed along wit 1 unit of FFp and 1 unit platelets. I will also give him vit K 10 mg to stop bleeding if still present. - Date & Time Date: 07/16/18 Time: 10:31
[2018-07-16] MEDS ORDERED: Phytonadione 10 MG in Sodium Chloride 0.9% 50 ML IV ONE (11:00)
--- NOTE | 2018-07-16 11:52 | CP.PCM.CON ---
History of Present Illness - History of Present Illness History of Present Illness: General Surgery- Consulted for hematoma Pt seen and examined this AM. He is very confused, he is complaining of right leg pain, all other information provided through chart review. Consult requested for hematoma, as pt had an apparent fall and was found to have multiple injuries including a large right sided abdominal/flank hematoma and right sided rib fractures (6th and 7th). He has been falling more often lately and is confused at baseline. He is not on any anticoagulants. Review of Systems - Review of Systems Systems not reviewed;Unavailable: Acuity of Condition, Unstable Vital Signs, Respiratory Distress, Dementia, Altered Mental Status, Intoxicated, Uncooperative, Psychotic, Intubated, Language Barrier, Other Past Patient History - Infectious Disease Hx of Infectious Diseases: None - Past Medical History & Family History Past Medical History?: Yes - Past Social History Smoking Status: Former Smoker Alcohol: None Drugs: Denies - CARDIAC Hx Hypertension: Yes - PULMONARY Hx Respiratory Disorders: No - NEUROLOGICAL Hx Neurological Disorder: Yes Other/Comment: bilateral subdural hematoma - HEENT Hx Sinusitis: Yes - RENAL Hx Chronic Kidney Disease: No - ENDOCRINE/METABOLIC Hx Endocrine Disorders: No - HEMATOLOGICAL/ONCOLOGICAL Hx Human Immunodeficiency Virus (HIV): No Other/Comment: thrombocytopenia - INTEGUMENTARY Hx Dermatological Problems: No - MUSCULOSKELETAL/RHEUMATOLOGICAL Hx Musculoskeletal Disorders: Yes (Fall 2 wks ago) Hx Falls: Yes - GASTROINTESTINAL Hx Gastrointestinal Disorders: No - GENITOURINARY/GYNECOLOGICAL Hx Prostate Problems: Yes (BPH) - PSYCHIATRIC Hx Psychophysiologic Disorder: No Hx Substance Use: No - SURGICAL HISTORY Hx Surgeries: Yes Hx Appendectomy: Yes Hx Cholecystectomy: Yes Hx Herniorrhaphy: Yes - ANESTHESIA Hx Anesthesia: Yes Hx Anesthesia Reactions: No Meds Allergies/Adverse Reactions: Allergies Allergy/AdvReac Type Severity Reaction Status Date / Time No Known Allergies Allergy Verified 02/18/16 12:27 - Medications Medications: Current Medications Amlodipine Besylate (Norvasc) 10 mg PO DAILY [facility] Last Admin: 07/16/18 08:22 Dose: 10 mg Carvedilol (Coreg) 3.125 mg PO BID [facility] Last Admin: 07/16/18 11:27 Dose: Not Given Enoxaparin Sodium (Lovenox) 40 mg SC DAILY [facility]; Protocol Last Admin: 07/16/18 08:38 Dose: Not Given Ceftriaxone Sodium 1 gm/ (Sodium Chloride) 100 mls @ 100 mls/hr IVPB DAILY [facility]; Protocol Last Admin: 07/16/18 08:24 Dose: 100 mls/hr Azithromycin 500 mg/ Sodium (Chloride) 250 mls @ 250 mls/hr IVPB DAILY [facility]; Protocol Last Admin: 07/16/18 09:25 Dose: 250 mls/hr Montelukast Sodium (Singulair) 10 mg PO DAILY [facility] Last Admin: 07/16/18 08:25 Dose: 10 mg Fluticasone/Salmeterol (Advair Diskus 500/50) 1 puff IH Q12 [facility] Last Admin: 07/16/18 08:26 Dose: 1 puff Tamsulosin HCl (Flomax) 0.4 mg PO DAILY [facility] Last Admin: 07/15/18 08:51 Dose: 0.4 mg Physical Exam - Constitutional Appears: Confused, Cachectic, Chronically Ill - Head Exam Head Exam: NORMOCEPHALIC - Eye Exam Eye Exam: Normal appearance - ENT Exam ENT Exam: Mucous Membranes Dry Additional comments: Poor dentition, multiple cracked teeth - Neck Exam Neck exam: Positive for: Normal Inspection - Respiratory Exam Respiratory Exam: Clear to Auscultation Bilateral (in anterior lung aviles.) - Cardiovascular Exam Cardiovascular Exam: REGULAR RHYTHM, +S1, +S2 - GI/Abdominal Exam GI & Abdominal Exam: Soft. absent: Hernia, Rebound, Rigid, Tenderness - Exam Exam: NORMAL INSPECTION - Expanded Lower Extremities Exam Right Hip exam: ecchymosis, tenderness (tenderness illicited with ROM) - Back Exam Back exam: NORMAL INSPECTION - Neurological Exam Neurological exam: Alert - Psychiatric Exam Additional comments: pleasant - Skin Skin Exam: Abrasion (right flank, 2cm with scant bleeding.), Dry, Warm Additional comments: (+) Large hematoma of right flank circumventing to back, abd and right hip. (+) stage 2 sacral ulcer, clean, (-) odor. (+) hyperpigmentation of bilateral LE. Results - Vital Signs Recent Vital Signs: Last Vital Signs Temp 97.9 F 07/16/18 11:07 Pulse 76 07/16/18 11:27 Resp 22 07/16/18 11:07 BP 110/45 L 07/16/18 11:27 Pulse Ox 96 07/16/18 09:00 - Labs Result Diagrams: 07/16/18 08:42 07/16/18 04:55 Labs: Laboratory Results - last 24 hr 07/14/18 07/14/18 07/16/18 18:05 22:08 04:55 WBC 5.0 D RBC 2.71 L Hgb 7.9 L D Hct 22.9 L MCV 84.7 MCH 29.0 MCHC 34.3 RDW 16.2 H Plt Count 62 L D MPV 9.8 Neut % (Auto) 75.4 H Lymph % (Auto) 11.[address] [place] % (Auto) 11.5 H Eos % (Auto) 0.6 Baso % (Auto) 0.8 Neut # (Auto) 3.8 Lymph # (Auto) 0.[address] [place] # (Auto) 0.6 Eos # (Auto) 0.0 Baso # (Auto) 0.0 Sodium Potassium Chloride Carbon Dioxide Anion Gap BUN Creatinine Est GFR ( Amer) Est GFR (Non-Af Amer) Random Glucose Calcium Folate 16.3 Blood Type A POSITIVE Antibody Screen Negative Crossmatch See Detail BBK History Checked Patient has bt 07/16/18 07/16/18 04:55 08:42 WBC 5.2 RBC 2.66 L Hgb 7.7 L Hct 22.8 L MCV 86.0 MCH 29.0 MCHC 33.8 RDW 15.9 H Plt Count 72 L MPV Neut % (Auto) Lymph % (Auto) [place] % (Auto) Eos % (Auto) Baso % (Auto) Neut # (Auto) Lymph # (Auto) [place] # (Auto) Eos # (Auto) Baso # (Auto) Sodium 139 Potassium 4.0 Chloride 112 H Carbon Dioxide 21 L Anion Gap 10 BUN 23 H Creatinine 0.9 Est GFR ( Amer) > 60 Est GFR (Non-Af Amer) > 60 Random Glucose 120 H Calcium 7.7 L Folate Blood Type Antibody Screen Crossmatch BBK History Checked Assessment & Plan - Assessment and Plan (Free Text) Assessment: Hematoma Plan: Serial H & H Recommend right hip imaging Monitor size of hematoma Reposition pt q 2hrs for Will follow.
--- NOTE | 2018-07-16 11:57 | RAD ---
Date of service: 07/16/2018 PROCEDURE: CHEST RADIOGRAPH, 1 VIEW HISTORY: pneumonia rib fx COMPARISON: 07/14/2018 FINDINGS: LUNGS: Questionable abnormal opacity at right lung base. Follow-up advised. Subsegmental atelectasis at left base. No infiltrate elsewhere. PLEURA: No pneumothorax or pleural fluid seen. CARDIOVASCULAR: No aortic atherosclerotic calcification present. Normal. OSSEOUS STRUCTURES: No significant abnormalities. VISUALIZED UPPER ABDOMEN: Normal. OTHER FINDINGS: None. IMPRESSION: Possible right basilar infiltrate. Follow-up advised.
--- NOTE | 2018-07-16 14:48 | CP.PCM.PN ---
Subjective - Date & Time of Evaluation Date of Evaluation: 07/16/18 Time of Evaluation: 14:51 - Subjective Subjective: Patient confuse in delirium the H/H dropped more than 2 gm. The mental condition worse. Discussed with the son and railroad design consultant. Request a permission to transfuse the son gave us a verbal consent. Will continue to monitor H/H Consults appreciated. Objective - Vital Signs/Intake and Output Vital Signs (last 24 hours): Temp Pulse Resp BP Pulse Ox 98 F 93 H 30 H 142/59 L 96 07/16/18 14:07 07/16/18 14:07 07/16/18 14:07 07/16/18 14:07 07/16/18 13:00 Intake and Output: 07/16/18 07/16/18 11:59 23:59 Intake Total 845 100 Output Total 1000 Balance -155 100 - Medications Medications: Current Medications Amlodipine Besylate (Norvasc) 10 mg PO DAILY [facility] Last Admin: 07/16/18 08:22 Dose: 10 mg Carvedilol (Coreg) 3.125 mg PO BID [facility] Last Admin: 07/16/18 11:27 Dose: Not Given Enoxaparin Sodium (Lovenox) 40 mg SC DAILY [facility]; Protocol Last Admin: 07/16/18 08:38 Dose: Not Given Ceftriaxone Sodium 1 gm/ (Sodium Chloride) 100 mls @ 100 mls/hr IVPB DAILY [facility]; Protocol Last Admin: 07/16/18 08:24 Dose: 100 mls/hr Azithromycin 500 mg/ Sodium (Chloride) 250 mls @ 250 mls/hr IVPB DAILY [facility]; Protocol Last Admin: 07/16/18 09:25 Dose: 250 mls/hr Montelukast Sodium (Singulair) 10 mg PO DAILY [facility] Last Admin: 07/16/18 08:25 Dose: 10 mg Fluticasone/Salmeterol (Advair Diskus 500/50) 1 puff IH Q12 [facility] Last Admin: 07/16/18 08:26 Dose: 1 puff Tamsulosin HCl (Flomax) 0.4 mg PO DAILY [facility] Last Admin: 07/16/18 12:26 Dose: 0.4 mg - Labs Labs: 07/16/18 08:42 07/16/18 04:55 PT 14.8 Seconds (9.8-13.1) H 07/14/18 18:05 INR 1.3 07/14/18 18:05 APTT 39.0 Seconds (25.6-37.1) H 07/14/18 18:05 - Constitutional Appears: Confused, Chronically Ill - Head Exam Head Exam: NORMOCEPHALIC - Eye Exam Eye Exam: Normal appearance - Neck Exam Neck Exam: Full ROM - Respiratory Exam Respiratory Exam: Decreased Breath Sounds - Cardiovascular Exam Cardiovascular Exam: REGULAR RHYTHM, +S1, +S2 - GI/Abdominal Exam GI & Abdominal Exam: Normal Bowel Sounds Additional comments: large ecchymosis in the rt flank - Rectal Exam Rectal Exam: Deferred - Extremities Exam Extremities Exam: Full ROM - Neurological Exam Neurological Exam: Altered - Psychiatric Exam Psychiatric exam: Flat Affect - Skin Skin Exam: Pallor Assessment and Plan (1) Syncope Status: Acute (2) Dehydration Status: Acute (3) Ecchymosis Status: Acute (4) Decubitus skin ulcer Status: Acute (5) Delirium Status: Acute (6) UTI (urinary tract infection) Status: Acute (7) Pneumonia Status: Acute (8) Ribs, multiple fractures Status: Acute - Assessment and Plan (Free Text) Plan: As above
[2018-07-17 05:16] LABS: BASO % 0.6 % (0.0-2.0); EOS # 0.1 K/uL (0.0-0.7); HEMOGLOBIN 9.7 g/dL (12.0-18.0); LYMPH # 0.7 K/uL (1.0-4.3); LYMPH % 11.5 % (20.0-40.0); MEAN CELL VOLUME 85.6 fl (80.0-94.0); MEAN CORPUSCULAR HEMOGLOBIN 29.7 pg (27.0-31.0); MEAN CORPUSCULAR HGB CONC 34.7 g/dL (33.0-37.0); MEAN PLATELET VOLUME 9.5 fl (7.2-11.7); MONO # 0.7 K/uL (0.0-0.8); MONO % 11.8 % (0.0-10.0); NEUT # 4.3 K/uL (1.8-7.0); NEUT % 74.1 % (50.0-75.0); RBC 3.26 Mil/uL (4.40-5.90); RED CELL DISTRIBUTION WIDTH 15.3 % (11.5-14.5); WHITE BLOOD COUNT 5.8 K/uL (4.8-10.8)
--- NOTE | 2018-07-17 07:57 | CP.PCM.CON ---
History of Present Illness - History of Present Illness History of Present Illness: urology called to see pt for urine retention. currently in icu escobedo indwelling with clear concentrated output. had recent abdominal ct showing no sig findings renal or bladder. labs show normal bun crear. on pe escobedo entry point clean no suprapubic pain. once out of icu would suggest giving a voiding trial Past Patient History - Infectious Disease Hx of Infectious Diseases: None - Past Medical History & Family History Past Medical History?: Yes - Past Social History Smoking Status: Former Smoker Alcohol: None Drugs: Denies - CARDIAC Hx Hypertension: Yes - PULMONARY Hx Respiratory Disorders: No - NEUROLOGICAL Hx Neurological Disorder: Yes Other/Comment: bilateral subdural hematoma - HEENT Hx Sinusitis: Yes - RENAL Hx Chronic Kidney Disease: No - ENDOCRINE/METABOLIC Hx Endocrine Disorders: No - HEMATOLOGICAL/ONCOLOGICAL Hx Human Immunodeficiency Virus (HIV): No Other/Comment: thrombocytopenia - INTEGUMENTARY Hx Dermatological Problems: No - MUSCULOSKELETAL/RHEUMATOLOGICAL Hx Musculoskeletal Disorders: Yes (Fall 2 wks ago) Hx Falls: Yes - GASTROINTESTINAL Hx Gastrointestinal Disorders: No - GENITOURINARY/GYNECOLOGICAL Hx Prostate Problems: Yes (BPH) - PSYCHIATRIC Hx Psychophysiologic Disorder: No Hx Substance Use: No - SURGICAL HISTORY Hx Surgeries: Yes Hx Appendectomy: Yes Hx Cholecystectomy: Yes Hx Herniorrhaphy: Yes - ANESTHESIA Hx Anesthesia: Yes Hx Anesthesia Reactions: No Meds Allergies/Adverse Reactions: Allergies Allergy/AdvReac Type Severity Reaction Status Date / Time No Known Allergies Allergy Verified 02/18/16 12:27 - Medications Medications: Current Medications Amlodipine Besylate (Norvasc) 10 mg PO DAILY [facility] Last Admin: 07/16/18 08:22 Dose: 10 mg Carvedilol (Coreg) 3.125 mg PO BID [facility] Last Admin: 07/16/18 16:32 Dose: 3.125 mg Enoxaparin Sodium (Lovenox) 40 mg SC DAILY [facility]; Protocol Last Admin: 07/16/18 08:38 Dose: Not Given Ceftriaxone Sodium 1 gm/ (Sodium Chloride) 100 mls @ 100 mls/hr IVPB DAILY [facility]; Protocol Last Admin: 07/16/18 08:24 Dose: 100 mls/hr Azithromycin 500 mg/ Sodium (Chloride) 250 mls @ 250 mls/hr IVPB DAILY [facility]; Protocol Last Admin: 07/16/18 09:25 Dose: 250 mls/hr Montelukast Sodium (Singulair) 10 mg PO DAILY [facility] Last Admin: 07/16/18 08:25 Dose: 10 mg Fluticasone/Salmeterol (Advair Diskus 500/50) 1 puff IH Q12 [facility] Last Admin: 07/16/18 22:43 Dose: 1 puff Tamsulosin HCl (Flomax) 0.4 mg PO DAILY [facility] Last Admin: 07/16/18 12:26 Dose: 0.4 mg Results - Vital Signs Recent Vital Signs: Last Vital Signs Temp 98.9 F 07/16/18 23:00 Pulse 87 07/16/18 23:00 Resp 22 07/16/18 23:00 BP 138/67 07/16/18 23:00 Pulse Ox 96 07/16/18 13:00 - Labs Result Diagrams: 07/17/18 04:50 07/16/18 04:55 Labs: Laboratory Results - last 24 hr 07/14/18 07/16/18 07/17/18 18:05 08:42 04:50 WBC 5.2 5.8 RBC 2.66 L 3.26 L Hgb 7.7 L 9.7 L D Hct 22.8 L 27.9 L MCV 86.0 85.6 MCH 29.0 29.7 MCHC 33.8 34.7 RDW 15.9 H 15.3 H Plt Count 72 L 68 L MPV 9.5 Neut % (Auto) 74.1 Lymph % (Auto) 11.5 L Rabun % (Auto) 11.8 H Eos % (Auto) 2.0 Baso % (Auto) 0.6 Neut # (Auto) 4.3 Lymph # (Auto) 0.7 L Rabun # (Auto) 0.7 Eos # (Auto) 0.1 Baso # (Auto) 0.0 Blood Type A POSITIVE Antibody Screen Negative Crossmatch See Detail BBK History Checked Patient has bt
[2018-07-17] MEDS: Fluticasone-Salmeterol 500-50mcg Diskus IH SCH ×2 (08:59→21:54)
[2018-07-17] MEDS: Azithromycin 500 MG in Sodium Chloride 0.9% 250 ML IVPB SCH (09:02)
--- NOTE | 2018-07-17 09:19 | CP.PCM.PN ---
Subjective - Date & Time of Evaluation Date of Evaluation: 07/17/18 Time of Evaluation: 09:15 - Subjective Subjective: General surgery Pt sen and examined this AM. He is much more awake and alert today. He c/o right ankle pain only. Denies any abdominal pain, chest pain, or flank pain. Pt received blood transfusions yesterday. Labs and vitals noted. Hgb up to 9.7 from 7.7 PE Gen: Pt laying in bed in NAD Skin: large hematoma on right flank extending to portion of back, abd and right hip and right lateral ankle. (+) skin tear ~2cm on right flank, (+) stage 2 sacral ulcer. Cardio: s1s2 RRR Lungs: CTA bilaterally Abd: Soft NTND Extr: (+) lateral right ankle tenderness, (-) deformity. (-) right hip tenderness today. A/P Fall/Hematoma Continue to monitor H/H. Order entered for tylenol x1 for ankle pain Recommend SCD boots, as pt is not on any DVT prophylaxis at this time Objective - Vital Signs/Intake and Output Vital Signs (last 24 hours): Temp Pulse Resp BP Pulse Ox 98.5 F 87 30 H 143/51 L 100 07/17/18 08:00 07/17/18 09:00 07/17/18 08:00 07/17/18 09:00 07/17/18 08:00 Intake and Output: 07/17/18 07/17/18 06:59 18:59 Intake Total 1201 350 Output Total 480 Balance 721 350 - Medications Medications: Current Medications Amlodipine Besylate (Norvasc) 10 mg PO DAILY [facility] Last Admin: 07/17/18 09:00 Dose: 10 mg Carvedilol (Coreg) 3.125 mg PO BID [facility] Last Admin: 07/17/18 08:59 Dose: 3.125 mg Enoxaparin Sodium (Lovenox) 40 mg SC DAILY [facility]; Protocol Last Admin: 07/16/18 08:38 Dose: Not Given Ceftriaxone Sodium 1 gm/ (Sodium Chloride) 100 mls @ 100 mls/hr IVPB DAILY [facility]; Protocol Last Admin: 07/17/18 09:01 Dose: 100 mls/hr Azithromycin 500 mg/ Sodium (Chloride) 250 mls @ 250 mls/hr IVPB DAILY [facility]; Protocol Last Admin: 07/17/18 09:02 Dose: 250 mls/hr Montelukast Sodium (Singulair) 10 mg PO DAILY [facility] Last Admin: 07/17/18 09:02 Dose: 10 mg Fluticasone/Salmeterol (Advair Diskus 500/50) 1 puff IH Q12 [facility] Last Admin: 07/17/18 08:59 Dose: 1 puff Tamsulosin HCl (Flomax) 0.4 mg PO DAILY [facility] Last Admin: 07/17/18 09:00 Dose: 0.4 mg - Labs Labs: 07/17/18 04:50 07/16/18 04:55 PT 14.8 Seconds (9.8-13.1) H 07/14/18 18:05 INR 1.3 07/14/18 18:05 APTT 39.0 Seconds (25.6-37.1) H 07/14/18 18:05
--- NOTE | 2018-07-17 11:04 | CP.PCM.PN ---
Subjective - Date & Time of Evaluation Date of Evaluation: 07/17/18 Time of Evaluation: 11:00 Objective - Vital Signs/Intake and Output Vital Signs (last 24 hours): Temp Pulse Resp BP Pulse Ox 98.5 F 87 30 H 143/51 L 100 07/17/18 08:00 07/17/18 09:00 07/17/18 08:00 07/17/18 09:00 07/17/18 08:00 Intake and Output: 07/17/18 07/17/18 06:59 18:59 Intake Total 1201 350 Output Total 480 Balance 721 350 - Medications Medications: Current Medications Amlodipine Besylate (Norvasc) 10 mg PO DAILY [facility] Last Admin: 07/17/18 09:00 Dose: 10 mg Carvedilol (Coreg) 3.125 mg PO BID [facility] Last Admin: 07/17/18 08:59 Dose: 3.125 mg Enoxaparin Sodium (Lovenox) 40 mg SC DAILY [facility]; Protocol Last Admin: 07/16/18 08:38 Dose: Not Given Ceftriaxone Sodium 1 gm/ (Sodium Chloride) 100 mls @ 100 mls/hr IVPB DAILY [facility]; Protocol Last Admin: 07/17/18 09:01 Dose: 100 mls/hr Azithromycin 500 mg/ Sodium (Chloride) 250 mls @ 250 mls/hr IVPB DAILY [facility]; Protocol Last Admin: 07/17/18 09:02 Dose: 250 mls/hr Montelukast Sodium (Singulair) 10 mg PO DAILY [facility] Last Admin: 07/17/18 09:02 Dose: 10 mg Fluticasone/Salmeterol (Advair Diskus 500/50) 1 puff IH Q12 [facility] Last Admin: 07/17/18 08:59 Dose: 1 puff Tamsulosin HCl (Flomax) 0.4 mg PO DAILY [facility] Last Admin: 07/17/18 09:00 Dose: 0.4 mg - Labs Labs: 07/17/18 04:50 07/16/18 04:55 PT 14.8 Seconds (9.8-13.1) H 07/14/18 18:05 INR 1.3 07/14/18 18:05 APTT 39.0 Seconds (25.6-37.1) H 07/14/18 18:05
--- NOTE | 2018-07-17 12:34 | PQF ---
PROVIDER RESPONSE TEXT: Repotted cxr reveled several multifocal consolidations Will treated patient for pneumonia Dx Clinical pneumonia Dx of multiple fall Dx of multiple contusions Dx of suspected syncope REVIEWER QUERY TEXT: Conflicting Documentation Clarification Please clarify if Pneumonia is ruled in or ruled out Documentation in the PN of 07/15 of Pneumonia. Pulmonary consult with documentation of a follow up CT of the chest does not show any parenchymal con solidation, but there is longstanding other abnormalities noted. No evidence of Pneumonia when CT [address] is reviewed. A single mention or documentation of multiple diagnoses for the same clinical presentation appears in the record. Please clarify the diagnosis/diagnoses. Please also document if the condition is: -- Confirmed and current -- Confirmed, treated and resolved -- Ruled out -- Other, please specify The patient's Clinical Indicators include: Admitted s/p fall. Multiple contusions noted, possible syncopal episode. CXR: Multifocal infiltrate Rx: IVAB Query created by: Mary De La Cruz on 07/17/2018 11:32 AM Electronically signed by: Darius Pollock MD 07/17/2018 12:31 PM
--- NOTE | 2018-07-17 12:35 | CP.PCM.PN ---
Subjective - Date & Time of Evaluation Date of Evaluation: 07/17/18 Time of Evaluation: 12:35 - Subjective Subjective: Still confuse but more responsive Objective - Vital Signs/Intake and Output Vital Signs (last 24 hours): Temp Pulse Resp BP Pulse Ox 98.5 F 79 30 H 145/62 100 07/17/18 08:00 07/17/18 11:35 07/17/18 08:00 07/17/18 11:35 07/17/18 11:35 Intake and Output: 07/17/18 07/17/18 11:59 23:59 Intake Total 1340 Output Total 480 Balance 860 - Medications Medications: Current Medications Amlodipine Besylate (Norvasc) 10 mg PO DAILY [facility] Last Admin: 07/17/18 09:00 Dose: 10 mg Carvedilol (Coreg) 3.125 mg PO BID [facility] Last Admin: 07/17/18 08:59 Dose: 3.125 mg Enoxaparin Sodium (Lovenox) 40 mg SC DAILY [facility]; Protocol Last Admin: 07/16/18 08:38 Dose: Not Given Ceftriaxone Sodium 1 gm/ (Sodium Chloride) 100 mls @ 100 mls/hr IVPB DAILY [facility]; Protocol Last Admin: 07/17/18 09:01 Dose: 100 mls/hr Azithromycin 500 mg/ Sodium (Chloride) 250 mls @ 250 mls/hr IVPB DAILY [facility]; Protocol Last Admin: 07/17/18 09:02 Dose: 250 mls/hr Montelukast Sodium (Singulair) 10 mg PO DAILY [facility] Last Admin: 07/17/18 09:02 Dose: 10 mg Fluticasone/Salmeterol (Advair Diskus 500/50) 1 puff IH Q12 [facility] Last Admin: 07/17/18 08:59 Dose: 1 puff Tamsulosin HCl (Flomax) 0.4 mg PO DAILY [facility] Last Admin: 07/17/18 09:00 Dose: 0.4 mg - Labs Labs: 07/17/18 04:50 07/16/18 04:55 PT 14.8 Seconds (9.8-13.1) H 07/14/18 18:05 INR 1.3 07/14/18 18:05 APTT 39.0 Seconds (25.6-37.1) H 07/14/18 18:05 - Constitutional Appears: Confused, Chronically Ill - Head Exam Head Exam: NORMOCEPHALIC - Eye Exam Eye Exam: Normal appearance - Neck Exam Neck Exam: Full ROM - Respiratory Exam Respiratory Exam: Decreased Breath Sounds - Cardiovascular Exam Cardiovascular Exam: REGULAR RHYTHM, +S1, +S2 - GI/Abdominal Exam GI & Abdominal Exam: Normal Bowel Sounds - Neurological Exam Neurological Exam: Altered, Awake - Psychiatric Exam Psychiatric exam: Flat Affect - Skin Skin Exam: Pallor Assessment and Plan (1) Syncope Status: Acute (2) Dehydration Status: Acute (3) Ecchymosis Status: Acute (4) Decubitus skin ulcer Status: Acute (5) Delirium Status: Acute (6) UTI (urinary tract infection) Status: Acute (7) Pneumonia Status: Acute (8) Ribs, multiple fractures Status: Acute - Assessment and Plan (Free Text) Plan: Continue present rx Consider SNF when clinically stable Will follow H/H
--- NOTE | 2018-07-17 12:47 | PQF ---
PROVIDER RESPONSE TEXT: Anemia is documented in the Medical Record. Such as: -- Due to acute blood loss secondary to Patient s/p fall with large hematoma L flank area. REVIEWER QUERY TEXT: Anemia Type Anemia is documented in the Medical Record. Please specify the cause (includes suspected or probable cause) Such as: -- Due to acute blood loss -- Due to chronic blood loss -- Due to iron deficiency -- Due to postoperative blood loss -- Due to chronic disease -- Other, please specify The patient's Clinical Indicators include: Patient s/p fall with large hematoma L flank area. Transfused PRBC Query created by: Mary De La Cruz on 07/17/2018 12:37 PM Electronically signed by: Darius Pollock MD 07/17/2018 12:44 PM
--- NOTE | 2018-07-17 17:24 | CP.PCM.PN ---
Subjective - Date & Time of Evaluation Date of Evaluation: 07/17/18 Time of Evaluation: 17:20 - Subjective Subjective: The patient was initially seen on morning rounds in the intensive care unit. He was lying in bed and appeared comfortable at the time. He appears more interactive today and attempts to communicate. He acknowledges questions with speech that is difficult to understand. He remains well oxygenated and is presently not using his nasal cannula. His vital signs appear stable and he continues to be afebrile. Labs were reviewed and he does not have any leukocytosis. Hemoglobin 9.7 g. No dullness to percussion of the anterior thorax. No subcutaneous emphysema palpated. No tenderness to palpation over the rib cage. Breath sounds are present equally in both lungs. Scattered sonorous rhonchi are heard in the dependent zones of both lungs. No audible wheezing. No bronchial breathing. Objective - Vital Signs/Intake and Output Vital Signs (last 24 hours): Temp Pulse Resp BP Pulse Ox 98.8 F 74 23 136/51 L 100 07/17/18 16:00 07/17/18 16:56 07/17/18 12:51 07/17/18 16:56 07/17/18 16:00 Intake and Output: 07/17/18 07/17/18 11:59 23:59 Intake Total 1340 1120 Output Total 480 Balance 860 1120 - Medications Medications: Current Medications Amlodipine Besylate (Norvasc) 10 mg PO DAILY [facility] Last Admin: 07/17/18 09:00 Dose: 10 mg Carvedilol (Coreg) 3.125 mg PO BID [facility] Last Admin: 07/17/18 16:56 Dose: 3.125 mg Enoxaparin Sodium (Lovenox) 40 mg SC DAILY [facility]; Protocol Last Admin: 07/16/18 08:38 Dose: Not Given Ceftriaxone Sodium 1 gm/ (Sodium Chloride) 100 mls @ 100 mls/hr IVPB DAILY [facility]; Protocol Last Admin: 07/17/18 09:01 Dose: 100 mls/hr Azithromycin 500 mg/ Sodium (Chloride) 250 mls @ 250 mls/hr IVPB DAILY [facility]; Protocol Last Admin: 07/17/18 09:02 Dose: 250 mls/hr Montelukast Sodium (Singulair) 10 mg PO DAILY [facility] Last Admin: 07/17/18 09:02 Dose: 10 mg Fluticasone/Salmeterol (Advair Diskus 500/50) 1 puff IH Q12 [facility] Last Admin: 07/17/18 08:59 Dose: 1 puff Tamsulosin HCl (Flomax) 0.4 mg PO DAILY [facility] Last Admin: 07/17/18 09:00 Dose: 0.4 mg - Labs Labs: 07/17/18 04:50 07/16/18 04:55 PT 14.8 Seconds (9.8-13.1) H 07/14/18 18:05 INR 1.3 07/14/18 18:05 APTT 39.0 Seconds (25.6-37.1) H 07/14/18 18:05 Assessment and Plan (1) Anemia Status: Acute (2) Ecchymosis on examination Status: Acute (3) Altered mental status Status: Acute (4) Thrombocytopenia Status: Acute (5) Ribs, multiple fractures Status: Acute (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
[2018-07-18 06:12] LABS: BASO % 0.7 % (0.0-2.0); EOS # 0.2 K/uL (0.0-0.7); EOS % 3.3 % (0.0-4.0); HEMOGLOBIN 11.1 g/dL (12.0-18.0); LYMPH # 0.7 K/uL (1.0-4.3); LYMPH % 9.5 % (20.0-40.0); MEAN CELL VOLUME 86.8 fl (80.0-94.0); MEAN CORPUSCULAR HEMOGLOBIN 30.1 pg (27.0-31.0); MEAN CORPUSCULAR HGB CONC 34.7 g/dL (33.0-37.0); MEAN PLATELET VOLUME 9.6 fl (7.2-11.7); MONO # 0.7 K/uL (0.0-0.8); MONO % 10.2 % (0.0-10.0); NEUT # 5.2 K/uL (1.8-7.0); NEUT % 76.3 % (50.0-75.0); NRBC % 0.1 % (0.0-0.0); PLATELET COUNT 102 K/uL (130-400); RED CELL DISTRIBUTION WIDTH 16.1 % (11.5-14.5); WHITE BLOOD COUNT 6.9 K/uL (4.8-10.8)
[2018-07-18] MEDS: Azithromycin 500 MG in Sodium Chloride 0.9% 250 ML IVPB SCH (09:38)
[2018-07-18] MEDS: Fluticasone-Salmeterol 500-50mcg Diskus IH SCH ×2 (09:39→21:01)
--- NOTE | 2018-07-18 09:48 | CP.PCM.PN ---
Subjective - Date & Time of Evaluation Date of Evaluation: 07/18/18 Time of Evaluation: 09:48 - Subjective Subjective: LYING IN BED WHEN SEEN THIS MORNING. TRIES TO ANSWER QUESTIONS WHEN SPOKEN TO IN BRITISH. VITAL SIGNS REMAIN STABLE. HEMOGLOBIN 11.1GM, PLATELETS 102. LARGE AREA OF ECCHYMOSIS APPEARS UNCHANGED FROM THE DAY PRIOR. NO DULLNESS ON PERCUSSION OF THE ANTERIOR CHEST WALL. BREATH SOUNDS PRESENT EQUALLY IN BOTH LUNGS. NO RIB CRUNCH OR CHEST WALL ECCHYMOSIS. BREATH SOUNDS ARE DIMINISHED POSTERIORLY WITH FEW DRY RALES. NO AUDIBLE WHEEZES OR BRONCHIAL BREATH SOUNDS. RESPIRATORY STATUS SEEMS STABLE. Objective - Vital Signs/Intake and Output Vital Signs (last 24 hours): Temp Pulse Resp BP Pulse Ox 97.6 F 71 18 139/68 95 07/18/18 00:21 07/18/18 00:21 07/18/18 00:21 07/18/18 00:21 07/18/18 00:21 Intake and Output: 07/17/18 07/18/18 23:59 11:59 Intake Total 1120 Output Total 1200 Balance -80 - Medications Medications: Current Medications Amlodipine Besylate (Norvasc) 10 mg PO DAILY [facility] Last Admin: 07/18/18 09:39 Dose: 10 mg Carvedilol (Coreg) 3.125 mg PO BID [facility] Last Admin: 07/18/18 09:39 Dose: 3.125 mg Enoxaparin Sodium (Lovenox) 40 mg SC DAILY [facility]; Protocol Last Admin: 07/16/18 08:38 Dose: Not Given Ceftriaxone Sodium 1 gm/ (Sodium Chloride) 100 mls @ 100 mls/hr IVPB DAILY [facility]; Protocol Last Admin: 07/18/18 09:38 Dose: 100 mls/hr Azithromycin 500 mg/ Sodium (Chloride) 250 mls @ 250 mls/hr IVPB DAILY [facility]; Protocol Last Admin: 07/18/18 09:38 Dose: 250 mls/hr Montelukast Sodium (Singulair) 10 mg PO DAILY [facility] Last Admin: 07/18/18 09:39 Dose: 10 mg Fluticasone/Salmeterol (Advair Diskus 500/50) 1 puff IH Q12 [facility] Last Admin: 07/18/18 09:39 Dose: 1 puff Tamsulosin HCl (Flomax) 0.4 mg PO DAILY [facility] Last Admin: 07/18/18 09:39 Dose: 0.4 mg - Labs Labs: 07/18/18 05:55 07/16/18 04:55 PT 14.8 Seconds (9.8-13.1) H 07/14/18 18:05 INR 1.3 07/14/18 18:05 APTT 39.0 Seconds (25.6-37.1) H 07/14/18 18:05 Assessment and Plan (1) Anemia Status: Acute (2) Ecchymosis on examination Status: Acute (3) Altered mental status Status: Acute (4) Thrombocytopenia Status: Acute (5) Ribs, multiple fractures Status: Acute (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
[2018-07-18 10:00] LABS: ANISOCYTOSIS SLIGHT; EOSINOPHIL 5 % (0-7); HYPOCHROMIC SLIGHT; LYMPHOCYTE 11 % (20-50); MONOCYTE 12 % (0-10); NEUTROPHIL 71 % (42-75); PLATELET ESTIMATE DECREASED (NORMAL); REACTIVE LYMPHOCYTES 1 % (0-0); TOTAL CELLS COUNTED 100
--- NOTE | 2018-07-18 10:30 | CP.PCM.PN ---
Subjective - Date & Time of Evaluation Date of Evaluation: 07/18/18 Time of Evaluation: 10:26 - Subjective Subjective: General Surgery Pt seen and examined this AM. Pt is confused and mumbling. Labs and vitals noted. 11.1 FROM 9.7 PE Gen: Pt laying in bed in NAD Skin: warm and dry. (+) large healing hematoma of the right flank expanding to the back,abd, hip Cardio: s1s2 RRR Lungs: CTA bilaterally in anterior lung aviles Abd: Soft, NTND Extr: (+) right lateral ankle tenderness a/p Large hematoma Healing Hgb stable Will monitor Objective - Vital Signs/Intake and Output Vital Signs (last 24 hours): Temp Pulse Resp BP Pulse Ox 97.6 F 71 18 139/68 95 07/18/18 00:21 07/18/18 00:21 07/18/18 00:21 07/18/18 00:21 07/18/18 00:21 - Medications Medications: Current Medications Amlodipine Besylate (Norvasc) 10 mg PO DAILY [facility] Last Admin: 07/18/18 09:39 Dose: 10 mg Carvedilol (Coreg) 3.125 mg PO BID [facility] Last Admin: 07/18/18 09:39 Dose: 3.125 mg Enoxaparin Sodium (Lovenox) 40 mg SC DAILY [facility]; Protocol Last Admin: 07/16/18 08:38 Dose: Not Given Ceftriaxone Sodium 1 gm/ (Sodium Chloride) 100 mls @ 100 mls/hr IVPB DAILY [facility]; Protocol Last Admin: 07/18/18 09:38 Dose: 100 mls/hr Azithromycin 500 mg/ Sodium (Chloride) 250 mls @ 250 mls/hr IVPB DAILY [facility]; Protocol Last Admin: 07/18/18 09:38 Dose: 250 mls/hr Montelukast Sodium (Singulair) 10 mg PO DAILY [facility] Last Admin: 07/18/18 09:39 Dose: 10 mg Fluticasone/Salmeterol (Advair Diskus 500/50) 1 puff IH Q12 [facility] Last Admin: 07/18/18 09:39 Dose: 1 puff Tamsulosin HCl (Flomax) 0.4 mg PO DAILY [facility] Last Admin: 07/18/18 09:39 Dose: 0.4 mg - Labs Labs: 07/18/18 05:55 07/16/18 04:55 PT 14.8 Seconds (9.8-13.1) H 07/14/18 18:05 INR 1.3 07/14/18 18:05 APTT 39.0 Seconds (25.6-37.1) H 07/14/18 18:05
--- NOTE | 2018-07-18 10:48 | CP.PCM.PN ---
Subjective - Date & Time of Evaluation Date of Evaluation: 07/18/18 Time of Evaluation: 10:46 - Subjective Subjective: Pt is alert and awake. No shortness of breath, lungs clear. Vital signs are normal. His hgb is up to 11.1 and there does not seem to be an extension of te hematoma. will monitor the CBC Objective - Vital Signs/Intake and Output Vital Signs (last 24 hours): Temp Pulse Resp BP Pulse Ox 97.6 F 71 18 139/68 95 07/18/18 00:21 07/18/18 00:21 07/18/18 00:21 07/18/18 00:21 07/18/18 00:21 - Medications Medications: Current Medications Amlodipine Besylate (Norvasc) 10 mg PO DAILY [facility] Last Admin: 07/18/18 09:39 Dose: 10 mg Carvedilol (Coreg) 3.125 mg PO BID [facility] Last Admin: 07/18/18 09:39 Dose: 3.125 mg Enoxaparin Sodium (Lovenox) 40 mg SC DAILY [facility]; Protocol Last Admin: 07/16/18 08:38 Dose: Not Given Ceftriaxone Sodium 1 gm/ (Sodium Chloride) 100 mls @ 100 mls/hr IVPB DAILY [facility]; Protocol Last Admin: 07/18/18 09:38 Dose: 100 mls/hr Azithromycin 500 mg/ Sodium (Chloride) 250 mls @ 250 mls/hr IVPB DAILY [facility]; Protocol Last Admin: 07/18/18 09:38 Dose: 250 mls/hr Montelukast Sodium (Singulair) 10 mg PO DAILY [facility] Last Admin: 07/18/18 09:39 Dose: 10 mg Fluticasone/Salmeterol (Advair Diskus 500/50) 1 puff IH Q12 [facility] Last Admin: 07/18/18 09:39 Dose: 1 puff Tamsulosin HCl (Flomax) 0.4 mg PO DAILY [facility] Last Admin: 07/18/18 09:39 Dose: 0.4 mg - Labs Labs: 07/18/18 05:55 07/16/18 04:55 PT 14.8 Seconds (9.8-13.1) H 07/14/18 18:05 INR 1.3 07/14/18 18:05 APTT 39.0 Seconds (25.6-37.1) H 07/14/18 18:05
--- NOTE | 2018-07-18 11:50 | PQF ---
PROVIDER RESPONSE TEXT: Interstitial pneumonia REVIEWER QUERY TEXT: Pneumonia Specificity Pneumonia is documented in the Medical Record. Please specify the type of pneumonia and the causative organism (includes probable or suspected) CAP, HAP and HCAP are terms that merely represent the met hod of acquisition and not the specific type of pneumonia. Such as: Type: -- Aspiration pneumonia (please also specify the aspirate) -- Bacterial (please document suspected or probable organism -- Bronchopneumonia (please document suspected or probable organism) -- Interstitial pneumonia -- Organizing pneumonia / BOOP -- Pneumonia with influenza, mell flu, or H1N1 flu -- Tuberculosis, pulmonary -- Viral -- Other, please specify -- Unable to determine The patient's Clinical Indicators include: Admitted s/p fall. Multiple contusions noted, possible syncopal episode. CXR: Multifocal infiltrate DX: Clinical Pneumonia Rx: IVAB Query created by: Mary De La Cruz on 07/18/2018 9:25 AM Electronically signed by: Darius Pollock MD 07/18/2018 11:46 AM
--- NOTE | 2018-07-18 11:53 | CP.PCM.PN ---
Subjective - Date & Time of Evaluation Date of Evaluation: 07/18/18 Time of Evaluation: 11:53 - Subjective Subjective: Still confuse. F/U CTscan and serial H/H. If stable will dc to SNF in am for 5 more days of iv antibx and PT Objective - Vital Signs/Intake and Output Vital Signs (last 24 hours): Temp Pulse Resp BP Pulse Ox 97.6 F 71 18 139/68 95 07/18/18 00:21 07/18/18 00:21 07/18/18 00:21 07/18/18 00:21 07/18/18 00:21 Intake and Output: 07/17/18 07/18/18 23:59 11:59 Intake Total 1120 Output Total 1200 Balance -80 - Medications Medications: Current Medications Amlodipine Besylate (Norvasc) 10 mg PO DAILY [facility] Last Admin: 07/18/18 09:39 Dose: 10 mg Carvedilol (Coreg) 3.125 mg PO BID [facility] Last Admin: 07/18/18 09:39 Dose: 3.125 mg Enoxaparin Sodium (Lovenox) 40 mg SC DAILY [facility]; Protocol Last Admin: 07/16/18 08:38 Dose: Not Given Ceftriaxone Sodium 1 gm/ (Sodium Chloride) 100 mls @ 100 mls/hr IVPB DAILY [facility]; Protocol Last Admin: 07/18/18 09:38 Dose: 100 mls/hr Azithromycin 500 mg/ Sodium (Chloride) 250 mls @ 250 mls/hr IVPB DAILY [facility]; Protocol Last Admin: 07/18/18 09:38 Dose: 250 mls/hr Montelukast Sodium (Singulair) 10 mg PO DAILY [facility] Last Admin: 07/18/18 09:39 Dose: 10 mg Fluticasone/Salmeterol (Advair Diskus 500/50) 1 puff IH Q12 [facility] Last Admin: 07/18/18 09:39 Dose: 1 puff Tamsulosin HCl (Flomax) 0.4 mg PO DAILY [facility] Last Admin: 07/18/18 09:39 Dose: 0.4 mg - Labs Labs: 07/18/18 05:55 07/16/18 04:55 PT 14.8 Seconds (9.8-13.1) H 07/14/18 18:05 INR 1.3 07/14/18 18:05 APTT 39.0 Seconds (25.6-37.1) H 07/14/18 18:05 - Constitutional Appears: Confused, Chronically Ill - Head Exam Head Exam: NORMOCEPHALIC - Eye Exam Eye Exam: Normal appearance - ENT Exam ENT Exam: Mucous Membranes Moist - Neck Exam Neck Exam: Full ROM - Respiratory Exam Respiratory Exam: Decreased Breath Sounds - Cardiovascular Exam Cardiovascular Exam: REGULAR RHYTHM, +S1, +S2 - GI/Abdominal Exam GI & Abdominal Exam: Normal Bowel Sounds - Extremities Exam Extremities Exam: Normal Inspection - Neurological Exam Neurological Exam: Altered, Awake - Psychiatric Exam Psychiatric exam: Flat Affect - Skin Skin Exam: Normal Color Assessment and Plan (1) Syncope Status: Acute (2) Dehydration Status: Acute (3) Ecchymosis Status: Acute (4) Decubitus skin ulcer Status: Acute (5) Delirium Status: Acute (6) UTI (urinary tract infection) Status: Acute (7) Pneumonia Status: Acute (8) Ribs, multiple fractures Status: Acute
--- NOTE | 2018-07-18 14:14 | CT ---
Date of service: 07/18/2018 PROCEDURE: CT Chest, Abdomen and Pelvis without intravenous contrast HISTORY: f/u multiple trauma COMPARISON: 07/14/2018 CT thorax abdomen and pelvis TECHNIQUE: Unenhanced study. Neither oral nor intravenous contrast administered. Sensitivity and specificity for acute inflammatory processes limited by the absence of oral and intravenous contrast. This CT exam was performed using one or more of the following dose reduction techniques: Automated exposure control, adjustment of the mA and/or kV according to patient size, and/or use of iterative reconstruction technique. Total exam DLP = 657.90 mGy-cm. FINDINGS: CT CHEST WITHOUT CONTRAST: LUNGS: No focal masses, nodules or discrete infiltrates. Decrease in interstitial findings compared previously supporting a diagnosis of pulmonary edema apparent on the prior study now improved without complete resolution. MEDIASTINUM: Unremarkable. Normal caliber aorta and pulmonary arterial trunk. Normal size heart. LYMPH NODES: Unremarkable. PLEURA: Trace right pleural effusion a new finding. BONES: Stable posterior lateral right 7th and 8th rib fractures. No additional osseous abnormalities. OTHER FINDINGS: None. CT ABDOMEN AND PELVIS: LIVER: Unremarkable. No gross lesion or ductal dilatation. GALLBLADDER AND BILE DUCTS: Status post cholecystectomy. No abnormality is seen in the gallbladder fossa. PANCREAS: Unremarkable. No gross lesion or ductal dilatation. SPLEEN: Unremarkable. ADRENALS: Stable enlargement right adrenal gland KIDNEYS AND URETERS: Unremarkable. No hydronephrosis. No solid mass. VASCULATURE: No aortic atherosclerotic calcification or mural plaque present. Unremarkable. No aortic aneurysm. BOWEL: Unremarkable. No obstruction. No gross mural thickening. APPENDIX: Normal appendix. PERITONEUM: Unremarkable. No free fluid. No free air. LYMPH NODES: Unremarkable. No enlarged lymph nodes. BONES: No acute fracture. OTHER FINDINGS: Maturation of soft tissue injury right flank and adjacent to the right iliac bone and gluteal muscles consistent with posttraumatic soft tissue hemorrhage. Eight discrete hematoma adjacent to the lateral iliac wing on the right measures 5.9 x 5.8 cm. IMPRESSION: No active pulmonary disease. Improvement in pulmonary edema. Trace right pleural effusion. Stable right posterior lateral rib fractures. Evolving hematoma right flank.
[2018-07-19 00:26] VITALS: TEMP 97.3
[2018-07-19 06:31] LABS: BASO % 0.5 % (0.0-2.0); EOS # 0.3 K/uL (0.0-0.7); EOS % 3.5 % (0.0-4.0); HEMOGLOBIN 11.8 g/dL (12.0-18.0); LYMPH # 0.7 K/uL (1.0-4.3); LYMPH % 10.2 % (20.0-40.0); MEAN CELL VOLUME 86.5 fl (80.0-94.0); MEAN CORPUSCULAR HEMOGLOBIN 29.4 pg (27.0-31.0); MEAN PLATELET VOLUME 9.8 fl (7.2-11.7); MONO # 0.8 K/uL (0.0-0.8); MONO % 10.7 % (0.0-10.0); NEUT # 5.5 K/uL (1.8-7.0); NEUT % 75.1 % (50.0-75.0); NRBC % 0.2 % (0.0-0.0); RBC 4.03 Mil/uL (4.40-5.90); RED CELL DISTRIBUTION WIDTH 16.2 % (11.5-14.5); WHITE BLOOD COUNT 7.3 K/uL (4.8-10.8)
[2018-07-19 06:38] LABS: BLOOD UREA NITROGEN 15 mg/dl (9-20); CALCIUM 8.4 mg/dL (8.4-10.2); GFR NON-AFRICAN AMERICAN > 60
--- NOTE | 2018-07-19 08:34 | CP.PCM.PN ---
Subjective - Date & Time of Evaluation Date of Evaluation: 07/19/18 Time of Evaluation: 08:30 - Subjective Subjective: Pt is feeling no pain.The echymosis is not expanding any more and pt's CBC is stable with wbc 7,3, hgb 11.8, , [id number]. Will sign off case, please recall if needed Objective - Vital Signs/Intake and Output Vital Signs (last 24 hours): Temp Pulse Resp BP Pulse Ox 97.3 F L 69 20 141/55 L 98 07/19/18 00:25 07/19/18 00:25 07/19/18 00:25 07/19/18 00:25 07/19/18 00:25 - Medications Medications: Current Medications Amlodipine Besylate (Norvasc) 10 mg PO DAILY [facility] Last Admin: 07/18/18 09:39 Dose: 10 mg Carvedilol (Coreg) 3.125 mg PO BID [facility] Last Admin: 07/18/18 16:01 Dose: 3.125 mg Enoxaparin Sodium (Lovenox) 40 mg SC DAILY [facility]; Protocol Last Admin: 07/16/18 08:38 Dose: Not Given Ceftriaxone Sodium 1 gm/ (Sodium Chloride) 100 mls @ 100 mls/hr IVPB DAILY [facility]; Protocol Azithromycin 500 mg/ Sodium (Chloride) 250 mls @ 250 mls/hr IVPB DAILY [facility]; Protocol Montelukast Sodium (Singulair) 10 mg PO DAILY [facility] Last Admin: 07/18/18 09:39 Dose: 10 mg Fluticasone/Salmeterol (Advair Diskus 500/50) 1 puff IH Q12 [facility] Last Admin: 07/18/18 21:01 Dose: 1 puff Tamsulosin HCl (Flomax) 0.4 mg PO DAILY [facility] Last Admin: 07/18/18 09:39 Dose: 0.4 mg - Labs Labs: 07/19/18 05:45 07/19/18 05:45 PT 14.8 Seconds (9.8-13.1) H 07/14/18 18:05 INR 1.3 07/14/18 18:05 APTT 39.0 Seconds (25.6-37.1) H 07/14/18 18:05
[2018-07-19 08:38] VITALS: BP 157/63; PULSE 67; RESP 18; O2SAT 96
--- NOTE | 2018-07-19 08:52 | CP.PCM.PN ---
Subjective - Date & Time of Evaluation Date of Evaluation: 07/19/18 Time of Evaluation: 08:50 - Subjective Subjective: General Surgery Pt seen and examined this AM. Pt is confused. Afebrile. Doesn't appear to be in distressed. Vitals and labs noted. Hgb 11.8 from 11.1 PE Gen: Pt laying in bed in NAD. Confused Skin: large healing hematoma to right flank, not spreading Cardio: s1s2 RRR Lungs: (-) tachypnea, (-) wheezing, (+) rales on the right side Abd: Soft NTND Extr: (-) calf swelling bilaterally A/P Hematoma Stable in size Hgb stable Surgery will sign off, reconsult if needed. Objective - Vital Signs/Intake and Output Vital Signs (last 24 hours): Temp Pulse Resp BP Pulse Ox 97.3 F L 67 18 157/63 H 96 07/19/18 08:38 07/19/18 08:38 07/19/18 08:38 07/19/18 08:38 07/19/18 08:38 - Medications Medications: Current Medications Amlodipine Besylate (Norvasc) 10 mg PO DAILY [facility] Last Admin: 07/18/18 09:39 Dose: 10 mg Carvedilol (Coreg) 3.125 mg PO BID [facility] Last Admin: 07/18/18 16:01 Dose: 3.125 mg Enoxaparin Sodium (Lovenox) 40 mg SC DAILY [facility]; Protocol Last Admin: 07/16/18 08:38 Dose: Not Given Ceftriaxone Sodium 1 gm/ (Sodium Chloride) 100 mls @ 100 mls/hr IVPB DAILY [facility]; Protocol Azithromycin 500 mg/ Sodium (Chloride) 250 mls @ 250 mls/hr IVPB DAILY [facility]; Protocol Montelukast Sodium (Singulair) 10 mg PO DAILY [facility] Last Admin: 07/18/18 09:39 Dose: 10 mg Fluticasone/Salmeterol (Advair Diskus 500/50) 1 puff IH Q12 [facility] Last Admin: 07/18/18 21:01 Dose: 1 puff Tamsulosin HCl (Flomax) 0.4 mg PO DAILY [facility] Last Admin: 07/18/18 09:39 Dose: 0.4 mg - Labs Labs: 07/19/18 05:45 07/19/18 05:45 PT 14.8 Seconds (9.8-13.1) H 07/14/18 18:05 INR 1.3 07/14/18 18:05 APTT 39.0 Seconds (25.6-37.1) H 07/14/18 18:05
[2018-07-19] MEDS ORDERED: Azithromycin 500 MG in Sodium Chloride 0.9% 250 ML IVPB SCH (09:00)
[2018-07-19] MEDS: Fluticasone-Salmeterol 500-50mcg Diskus IH SCH (09:31)
--- NOTE | 2018-07-19 09:55 | CP.PCM.DIS ---
Provider - Provider Date of Admission: 07/15/18 12:41 Attending physician: Darius Pollock MD Consults: 07/15/18 08:00 Pastoral Care Referral Routine Comment: Physician Instructions: Reason For Exam: admission 07/15/18 08:15 Urology Consult Routine Comment: Consulting Provider: Milady Silveira Consulting Physician: Milady Silveira Reason for Consult: urinary retention 07/15/18 08:25 Social Work Referral Routine Comment: ,with decubiti,falls all the time Physician Instructions: Reason For Exam: admission 07/15/18 09:00 Case Management Referral Routine Comment: Physician Instructions: Reason For Exam: admission Reason for Referral: Night Custodian Eval Nursing Referral for Wound Care Routine Comment: rt hip skin tear,excoriated sacral are and perinea Physician Instructions: Reason For Exam: admission 07/15/18 12:40 Pulmonology Consult Routine Comment: Consulting Provider: James Ochoa Consulting Physician: James Ochoa Reason for Consult: copd pneumonia 07/16/18 08:49 Hematology Oncology Consult Routine Comment: Consulting Provider: Sugey Rondon Consulting Physician: Sugey Rondon Reason for Consult: anemia 07/16/18 09:21 General Surgery Consult Routine Comment: Consulting Provider: Duane Dawson Consulting Physician: Duane Dawson Reason for Consult: evaluation for large hematoma Time Spent in preparation of Discharge (in minutes): 30 Diagnosis - Discharge Diagnosis (1) Syncope Status: Acute (2) Dehydration Status: Acute (3) Ecchymosis Status: Acute (4) Decubitus skin ulcer Status: Acute (5) Delirium Status: Acute (6) UTI (urinary tract infection) Status: Acute (7) Pneumonia Status: Acute (8) Ribs, multiple fractures Status: Acute Hospital Course - Lab Results Lab Results: Micro Results 07/15/18 13:17 Blood-Venous Blood Culture - Preliminary NO GROWTH AFTER 3 DAYS 07/15/18 13:07 Blood-Venous Blood Culture - Preliminary NO GROWTH AFTER 3 DAYS 07/15/18 08:00 Nose MRSA Culture (Admit) - Final MRSA NOT DETECTED 07/15/18 08:00 Urine,Catheterized Urine Culture - Final No Growth (<1,000 CFU/ML) Most Recent Lab Values WBC 7.3 K/uL (4.8-10.8) 07/19/18 05:45 RBC 4.03 Mil/uL (4.40-5.90) L 07/19/18 05:45 Hgb 11.8 g/dL (12.0-18.0) L 07/19/18 05:45 Hct 34.8 % (35.0-51.0) L 07/19/18 05:45 MCV 86.5 fl (80.0-94.0) 07/19/18 05:45 MCH 29.4 pg (27.0-31.0) 07/19/18 05:45 MCHC 34.0 g/dL (33.0-37.0) 07/19/18 05:45 RDW 16.2 % (11.5-14.5) H 07/19/18 05:45 Plt Count 116 K/uL (130-400) L 07/19/18 05:45 MPV 9.8 fl (7.2-11.7) 07/19/18 05:45 Neut % (Auto) 75.1 % (50.0-75.0) H 07/19/18 05:45 Lymph % (Auto) 10.2 % (20.0-40.0) L 07/19/18 05:45 [place] % (Auto) 10.7 % (0.0-10.0) H 07/19/18 05:45 Eos % (Auto) 3.5 % (0.0-4.0) 07/19/18 05:45 Baso % (Auto) 0.5 % (0.0-2.0) 07/19/18 05:45 Neut # (Auto) 5.5 K/uL (1.8-7.0) 07/19/18 05:45 Lymph # (Auto) 0.7 K/uL (1.0-4.3) L 07/19/18 05:45 [place] # (Auto) 0.8 K/uL (0.0-0.8) 07/19/18 05:45 Eos # (Auto) 0.3 K/uL (0.0-0.7) 07/19/18 05:45 Baso # (Auto) 0.0 K/uL (0.0-0.2) 07/19/18 05:45 Neutrophils % (Manual) 71 % (42-75) 07/18/18 05:55 Lymphocytes % (Manual) 11 % (20-50) L 07/18/18 05:55 Reactive Lymphs % 1 % (0-0) H 07/18/18 05:55 Monocytes % (Manual) 12 % (0-10) H 07/18/18 05:55 Eosinophils % (Manual) 5 % (0-7) 07/18/18 05:55 Platelet Estimate Decreased (NORMAL) L 07/18/18 05:55 Hypochromasia (manual) Slight 07/18/18 05:55 Anisocytosis (manual) Slight 07/18/18 05:55 Ovalocytes Slight 07/14/18 18:05 PT 14.8 Seconds (9.8-13.1) H 07/14/18 18:05 INR 1.3 07/14/18 18:05 APTT 39.0 Seconds (25.6-37.1) H 07/14/18 18:05 Sodium 136 mmol/l (132-148) 07/19/18 05:45 Potassium 4.1 MMOL/L (3.6-5.0) 07/19/18 05:45 Chloride 106 mmol/L (98-107) 07/19/18 05:45 Carbon Dioxide 19 mmol/L (22-30) L 07/19/18 05:45 Anion Gap 15 (10-20) 07/19/18 05:45 BUN 15 mg/dl (9-20) 07/19/18 05:45 Creatinine 0.6 mg/dl (0.8-1.5) L 07/19/18 05:45 Est GFR ( Amer) > 60 07/19/18 05:45 Est GFR (Non-Af Amer) > 60 07/19/18 05:45 POC Glucose (mg/dL) 106 mg/dL (65-110) 07/18/18 06:05 Random Glucose 108 mg/dL (75-110) 07/19/18 05:45 Calcium 8.4 mg/dL (8.4-10.2) 07/19/18 05:45 Magnesium 2.2 MG/DL (1.6-2.3) 07/14/18 21:11 Total Bilirubin 1.3 mg/dl (0.2-1.3) 07/14/18 22:08 Direct Bilirubin 0.1 mg/ml (0.0-0.4) 07/14/18 22:08 AST 12 U/L (17-59) L 07/14/18 22:08 ALT 28 U/L (21-72) 07/14/18 22:08 Alkaline Phosphatase 66 U/L (38-126) 07/14/18 22:08 Ammonia 9 umo/L (16-60) L 07/14/18 22:08 Total Creatine Kinase 29 U/L (55-170) L 07/14/18 18:05 Troponin I 0.0240 ng/mL (0.00-0.120) 07/14/18 21:11 Total Protein 5.7 G/DL (6.3-8.2) L 07/14/18 22:08 Albumin 2.8 g/dL (3.5-5.0) L D 07/14/18 22:08 Globulin 3.0 gm/dL (2.2-3.9) 07/14/18 22:08 Albumin/Globulin Ratio 0.9 (1.0-2.1) L 07/14/18 22:08 Vitamin B12 279 pg/mL (239-931) 07/14/18 22:08 Folate 16.3 ng/mL 07/14/18 22:08 TSH 3rd Generation 1.16 mIU/ML (0.46-4.68) 07/14/18 21:11 Urine Color Yellow (YELLOW) 07/15/18 08:00 Urine Clarity Slighty-cloudy (Clear) 07/15/18 08:00 Urine pH 5.0 (5.0-8.0) 07/15/18 08:00 Ur Specific [place] 1.010 (1.003-1.030) 07/15/18 08:00 Urine Protein Negative mg/dL (NEGATIVE) 07/15/18 08:00 Urine Glucose (UA) Neg mg/dL (Normal) 07/15/18 08:00 Urine Ketones Negative mg/dL (NEGATIVE) 07/15/18 08:00 Urine Blood Moderate (NEGATIVE) 07/15/18 08:00 Urine Nitrate Negative (NEGATIVE) 07/15/18 08:00 Urine Bilirubin Negative (NEGATIVE) 07/15/18 08:00 Urine Urobilinogen 4.0 mg/dL (0.2-1.0) 07/15/18 08:00 Ur Leukocyte Esterase Trace Divine/uL (Negative) 07/15/18 08:00 Urine RBC (Auto) 11 /hpf (0-3) H 07/15/18 08:00 Urine Microscopic WBC 5 /hpf (0-5) 07/15/18 08:00 Ur Squamous Epith Cells < 1 /hpf (0-5) 07/15/18 08:00 Blood Type A POSITIVE 07/14/18 18:05 Antibody Screen Negative 07/14/18 18:05 Crossmatch See Detail 07/14/18 18:05 BBK History Checked Patient has bt 07/14/18 18:05 - Hospital Course Hospital Course: 87 years old male presents to ER with family for evaluation of multiple contusions: a head injury, right ankle pain and right flank pain status post a mechanical fall today. Family reports he has been confused at baseline. Unclear if there was loss of consciousness. Patient describes a possible syncopal episode. With dizziness and vertigo. At timers appears confuse. during hospitalization developed severe anemia secondary to large hematoma. The patient was transfuse. At present stable for DC to SNF for PT and antibx rx. Discharge Exam - Head Exam Head Exam: NORMOCEPHALIC - Eye Exam Eye Exam: Normal appearance - Neck Exam Neck exam: Full Rom - Respiratory Exam Respiratory Exam: Clear to PA & Lateral - Cardiovascular Exam Cardiovascular Exam: REGULAR RHYTHM, +S1, +S2 - GI/Abdominal Exam GI & Abdominal Exam: Normal Bowel Sounds - Extremities Exam Extremities exam: normal inspection - Neurological Exam Neurological exam: Abnormal Gait, Alert, CN II-XII Intact, Oriented x3 - Psychiatric Exam Psychiatric exam: Flat Affect - Skin Skin Exam: Normal Color Discharge Plan - Discharge Medications Prescriptions: cefTRIAXone 1 gm [Rocephin 1 gram IVPB] 0 gm IV DAILY 5 Days #5 bag Azithromycin [Zithomax 500mg IV] 0 mg IV DAILY 5 Days #5 pds - Follow Up Plan Condition: STABLE Disposition: REHAB FACILITY/REHAB UNIT
== END 2018-07-19 16:35 | DRG 604 ==
LOC: H.ER 16:17 → H.ERHOLD 20:40 → H.ICU/CCU 07-15 01:50 → OBSVTOIN 07-15 12:41 → H.MEDSURG1 07-17 18:55
PROVIDERS: ADMIT Internal Medicine; ATTEND Internal Medicine
PROC: 30233N1 Transfusion of Nonautologous Red Blood Cells into Peripheral Vein, Percutaneous Approach (ICD-10-PCS; principal; 2018-07-16)
PROC: 30233K1 Transfusion of Nonautologous Frozen Plasma into Peripheral Vein, Percutaneous Approach (ICD-10-PCS; 2018-07-16)
PROC: 30233R1 Transfusion of Nonautologous Platelets into Peripheral Vein, Percutaneous Approach (ICD-10-PCS; 2018-07-16)
DX: S30.1XXA Contusion of abdominal wall, initial encounter (principal); J18.9 Pneumonia, unspecified organism; N39.0 Urinary tract infection, site not specified; S22.41XA Multiple fractures of ribs, right side, initial encounter for closed fracture; D62 Acute posthemorrhagic anemia; J84.9 Interstitial pulmonary disease, unspecified; S09.90XA Unspecified injury of head, initial encounter; R41.0 Disorientation, unspecified; R58 Hemorrhage, not elsewhere classified; L89.152 Pressure ulcer of sacral region, stage 2; L89.301 Pressure ulcer of unspecified buttock, stage 1; D69.6 Thrombocytopenia, unspecified; R33.9 Retention of urine, unspecified; E86.0 Dehydration; I10 Essential (primary) hypertension; I25.10 Atherosclerotic heart disease of native coronary artery without angina pectoris; M19.90 Unspecified osteoarthritis, unspecified site; M43.12 Spondylolisthesis, cervical region; N40.0 Benign prostatic hyperplasia without lower urinary tract symptoms; Z87.891 Personal history of nicotine dependence; Z90.49 Acquired absence of other specified parts of digestive tract; W19.XXXA Unspecified fall, initial encounter; M25.571 Pain in right ankle and joints of right foot; M79.604 Pain in right leg; R16.1 Splenomegaly, not elsewhere classified; D35.01 Benign neoplasm of right adrenal gland